=== PATIENT | male | born 1940 | race Caucasian/White ===

== ENCOUNTER 2019-08-01 18:21 | Inpatient (IN) | payer MEDICARE, BC ==
--- OUTSIDE RECORDS SUMMARY | 2019-08-01 18:30 | XMS REPORT | Continuity of Care Document ---
:1940 External Reference #:[id number] Author Name Hernan Garg M.D. Address [address] [place] [address] [address] [place] [address] Care Team Providers Name Role Phone Truman Black MD - Nephrology Care Team Information Outreach Analyst [phone] [place] [facility] - Care Team Information Outreach Analyst [phone] Neurology Peri Reyez - Wall Scraper Care Team Information Outreach Analyst [phone] [facility] - Care Team Information Outreach Analyst [phone] Gastroenterology Problems Active Problems Provider Date Chronic renal failure Hernan Garg M.D. Onset: 10/18/2005 Malaise and fatigue Hernan Garg M.D. Onset: 04/18/2006 Disorder of lipid metabolism Hernan Garg M.D. Onset: 04/18/2006 Anxiety state Hernan Garg M.D. Onset: 04/18/2006 Gastroesophageal reflux disease Hernan Garg M.D. Onset: 04/18/2006 Dysthymia Hernan Garg M.D. Onset: 03/14/2007 Benign essential hypertension Hernan Garg M.D. Onset: 03/14/2007 Chronic renal failure Hernan Garg M.D. Onset: 03/14/2007 History of polyp of colon Hernan Garg M.D. Onset: 04/08/2008 Gout Hernan Garg M.D. Onset: 04/14/2009 Coronary arteriosclerosis Hernan Garg M.D. Onset: 02/22/2011 Chronic kidney disease stage 3 Hernan Garg M.D. Onset: 07/30/2013 Essential hypertension Hernan Garg M.D. Onset: 08/12/2015 Aneurysm of thoracic aorta Hernan Garg M.D. Onset: 05/04/2018 Social History Type Date Description Comments Sex Unknown Tobacco Use Reviewed: 08/19/14 Never Smoked Cigarettes Smoking Status Reviewed: 08/19/14 Never Smoked Cigarettes ETOH Use Drinks Alcohol Occasionally Recreational Drug Use Denies Drug Use Allergies, Adverse Reactions, Alerts Description No Known Drug Allergies Medications Active Medications SIG Qnty Indications Ordering Date Provider Pantoprazole Sodium 1 by mouth every 90tabs K21.9 Hernan Garg, 2017 morning; for acid M.D. 40mg Tablets DR reflux Sertraline HCL 1.5 tablets by 135tabs F34.1 Hernan Garg, 05/03/2018 100mg mouth every day M.D. Tablets for mood Metoprolol Succinate take 1 tablet by 90tabs I10 Hernan Garg, 2016 ER mouth every M.D. 25mg Tablets ER 24HR morning for heart and blood pressure I25.10 Fiber Therapy [facility]- 1 po Unknown 08/09/2016 Tablets daily Atorvastatin Calcium Take 1 Tablet by 90tabs E71.30 Hernan Garg, 09/22 40mg mouth every day for M.D. Tablets high cholesterol Nitroglycerin 1 po prn for chest 25tabs I25.10 Hernan Garg, 04/02/2012 0.4mg Tablets pain, may repeat M.D. Sub after 5min to a max of 3 doses; call 911 if pain persists Allopurinol take 2 tablets by 180tabs M10.9 Hernan Garg, 10/10/2008 100mg Tablets mouth once daily to M.D. prevent gout Asa (Baby) 1 PO qd tim 12/15/2003 81mg Multivitamins tim 12/15/2003 Caplets Medications Administered in Office Medication SIG Qnty Indications Ordering Provider Date injection, kenalog, 10 mg Hernan Garg M.D. 02/20/2015 Injection Immunizations CPT Code Status Date Vaccine Lot # [id number] Given 07/09/2018 Influenza Vaccine Split Virus Preservative [place] Use 33950 Given 03/22/2018 Shingrix Zoster (Shingles) Vaccine (HZV) Recomb,Subnit,Adjuvanted 14294 Given 01/16/2018 Shingrix Zoster (Shingles) Vaccine (HZV) Recomb,Subnit,Adjuvanted 61658 Given 01/16/2018 Shingrix Zoster (Shingles) Vaccine (HZV) Recomb,Subnit,Adjuvanted 47173 Given 06/18/2017 Influenza Virus Vaccine, Quadrivalent, Split, Preservative Free 15805 Given 07/24/2016 Influenza Vaccine Split Virus Preservative Free Im Use 43497 Given 07/29/2015 Zostavax 93397 Given 07/29/2015 Influenza Vaccine Split Virus Preservative Free Im Use 27379 Given 04/13/2015 Prevnar 13 [id number] 41404 Given 02/17/2015 Adacel or Boostrix, TDaP [id number] 24730 Given 08/19/2014 Influenza Vaccine Split Virus Preservative Free Im [id number] Use 83006 Given 07/30/2013 Flu, Split Virus 3Yrs [id number] 66611 Given 07/31/2012 Flu, Split Virus 3Yrs [id number] 49400 Given 08/08/2011 Flu, Split Virus 3Yrs [id number] 74857 Given 07/02/2010 Flu, Split Virus 3Yrs [id number] 75540 Given 07/28/2009 Flu, Split Virus 3Yrs [id number] 16670 Given 08/12/2008 Flu, Split Virus 3Yrs [id number] 88512 Given 08/30/2007 Flu, Split Virus 3Yrs [id number] 95263 Given 08/21/2006 Flu, Split Virus 3Yrs [id number] 42893 Given 01/03/2006 Pneumococcal Immunization [id number] 71478 Given 01/03/2006 Td Immunization Td-145 25613 Given 08/20/2005 Flu, Split Virus 3Yrs 74419 Given 08/20/2005 Flu, Split Virus 3Yrs 93955 Refused 06/29/2007 Zostavax Vital Signs Date Vital Result Comment 06/14/2019 9:03am BP Systolic 138 mmHg BP Diastolic 84 mmHg Weight 217.50 lb w/sneakers 01/28/2019 8:52am BP Systolic 118 mmHg BP Diastolic 70 mmHg Height 67.5 inches 5'7.50" Weight 224.00 lb BMI (Body Mass Index) 34.6 kg/m2 Results Test Date Facility Test Result H/L Range Note Creatinine 04/12/2019 [facility] Urine Collection 24 hr Clearance [phone] Time Urine Total Volume 1300 mL Creatinine, Serum 2.58 mg/dL High 0.51-0.95 Urine Creatinine Concentration 97.92 mg/dL Creatinine Clearance 34 mL/min Low 97-137 Comp Metabolic Panel 04/12/2019 [facility] Sodium 144 mmol/L Normal 135-145 [phone] Co2 Carbon Dioxide 23 mmol/L Normal 22-32 Glucose 107 mg/dL High 70-100 Blood Urea Nitrogen 32 mg/dL High 6-24 Creatinine 2.59 mg/dL High 0.67-1.17 One Over Creatinine 0.38 BUN/Creatinine Ratio 12.4 Normal 8-20 Calcium 9.8 mg/dL Normal 8.6-10.3 Total Protein 6.3 g/dL Low 6.4-8.9 Albumin 4.0 g/dL Normal 3.2-5.2 Globulin 2.3 g/dL Normal 2-4 Albumin/Globulin Ratio 1.7 Normal 1-3 Total Bilirubin 0.60 mg/dL Normal 0.2-1.0 Alkaline Phosphatase 72 U/L Normal 34-104 Alt 20 U/L Normal 7-52 Ast 25 U/L Normal 13-39 Egfr Non- 24.0 >60 Egfr 29.0 >60 1 Potassium 5.3 mmol/L High 3.5-5.0 Chloride 114 mmol/L High 101-111 Anion Gap 7 mmol/L Normal 2-11 Lipid Profile (Trig/Chol/HDL) 04/12/2019 [facility] Triglycerides 173 mg/dL 2 [phone] Cholesterol 106 mg/dL 3 HDL Cholesterol 27.5 mg/dL 4 LDL Cholesterol 44 mg/dL 5 Liver Function 04/12/2019 [facility] Direct 0.10 mg/dL Normal 0.03- 0.18 Panel [phone] Bilirubin Indirect Bilirubin 0.5 mg/dL Normal 0.3-1.0 Laboratory test 04/12/2019 [facility] Uric Acid 5.2 mg/dL Normal 4.4- 7.6 finding [phone] Phosphorus 3.6 mg/dL Normal 2.5-5.0 Magnesium 2.0 mg/dL Normal 1.9-2.7 CBC Auto Diff 04/12/2019 [facility] White Blood 6.1 10^3/uL Normal 3.5-10.8 [phone] Count Red Blood Count 4.19 10^6/uL Normal 4.18-5.48 Hemoglobin 14.1 g/dL Normal 14.0-18.0 Hematocrit 43 % Normal 42-52 Mean Corpuscular Volume 103 fL High 80-94 Mean Corpuscular Hemoglobin 34 pg High 27-31 Mean Corpuscular HGB Conc 33 g/dL Normal 31-36 Red Cell Distribution Width 15 % Normal 10-15 Platelet Count 134 10^3/uL Low 150-450 Mean Platelet Volume 9.9 fL Normal 7.4-10.4 Abs Neutrophils 4.3 10^3/uL Normal 1.5-7.7 Abs Lymphocytes 1.1 10^3/uL Normal 1.0-4.8 Abs Monocytes 0.4 10^3/uL Normal 0-0.8 Abs Eosinophils 0.2 10^3/uL Normal 0-0.6 Abs Basophils 0.0 10^3/uL Normal 0-0.2 Abs Nucleated RBC 0.0 10^3/uL Granulocyte % 70.7 % Lymphocyte % 18.6 % Monocyte % 6.3 % Eosinophil % 4.0 % Basophil % 0.4 % Nucleated Red Blood Cells % 0.1 Total Protein 24HR Urine 04/12/2019 [facility] Urine Collection Time 24 hr [phone] Urine Total Volume 1300 mL Urine TP Concentration 21 mg/dL Urine Total Protein/24HR 273 mg/24Hr High 0-165 1 Because ethnic data is not always readily available, this report includes an eGFR for both -Americans and non- Americans. The National Kidney Disease Education Program (NKDEP) does not endorse the use of the MDRD equation for patients that are not between the ages of 18 and 70, are , have extremes of body size, muscle mass, or nutritional status, or are non- or non-. According to the National Kidney Foundation, irrespective of diagnosis, the stage of the disease is based on the level of kidney function: Stage Description GFR(mL/min/1.73 m(2)) 1 Kidney damage with normal or decreased GFR 90 2 Kidney damage with mild decrease in GFR 60-89 3 Moderate decrease in GFR 30-59 4 Severe decrease in GFR 15-29 5 Kidney failure <15 (or dialysis) 2 Desirable: <150 Borderline High: 150-199 High: 200-499 Very High: >500 3 Desirable: <200 Borderline High: 200-239 High: >239 4 Low: <40 Desirable: 40-60 High: >60 5 Desirable: <100 Near Optimal: 100-129 Borderline High: 130-159 High: 160-189 Very High: >189 Procedures Date Code Description Status 09/22/2017 16136728 Colonoscopy Completed Medical Devices Description No Information Available Encounters Type Date Location Provider Dx Diagnosis Office Visit 01/28/2019 8:30a Main Office Hernan Garg M.D. R29.6 Repeated falls M53.3 Sacrococcygeal disorders, not elsewhere classified N18.3 Chronic kidney disease, stage 3 (moderate) I10 Essential (primary) hypertension M62.81 Muscle weakness (generalized) Assessments Date Code Description Provider 06/14/2019 N18.3 Chronic kidney disease, stage 3 (moderate) Hernan Garg M.D. 06/14/2019 I10 Essential (primary) hypertension Hernan Garg M.D. 06/14/2019 F34.1 Dysthymic disorder Hernan Garg M.D. 06/14/2019 R29.6 Repeated Hernan Ro M.D. 06/14/2019 K21.9 Gastro-esophageal reflux disease without Hernan Garg M.D. esophagitis 06/14/2019 Z23 Encounter for immunization Hernan Garg M.D. 01/28/2019 R29.6 Repeated falls Hernan Garg M.D. 01/28/2019 M53.3 Sacrococcygeal disorders, not elsewhere Hernan Garg M.D. classified 01/28/2019 N18.3 Chronic kidney disease, stage 3 (moderate) Hernan Garg M.D. 01/28/2019 I10 Essential (primary) hypertension Hernan Garg M.D. 01/28/2019 M62.81 Muscle weakness (generalized) Hernan Garg M.D. Plan of Treatment 06/14/2019 - Hernan Garg M.D.N18.3 Chronic kidney disease, stage 3 ( moderate)I10 Essential (primary) hypertensionFollow up:RTO 4-6 months recheck chronic youwayniD17.1 Dysthymic disorderComments:Not doing so well. In discussing medication options (noting prior intolerance to bupropion and failing on citalopram), it was learned that he has only been taking 100mg/day of sertraline and not the 150mg as Rx'd. He will inc the dose to 150mg, reassess at next ov.Follow up:Increase your sertraline back to 150mg/dayR29.6 Repeated fallsComments:Encouraged him to take ageless agility class at & ollow up:You should STRONGLY CONSIDER taking ageless agility class at [facility] & amp; JffwztV79.9 Gastro-esophageal reflux disease without tivcnmnpjzqY09 Encounter for immunizationComments:Encouraged flu vaccine wc was accepted. VIS provided. Functional Status Description No Information Available Mental Status Description No Information Available Referrals Description No Information Available
--- OUTSIDE RECORDS SUMMARY | 2019-08-01 18:30 | XMS REPORT | Continuity of Care Document ---
:1940 External Reference #:[id number] Author Name Toney Conte M.D., [facility], [facility] (transmitted by agent of provider Tavia Samano) Address [facility] [place] [address] Care Team Providers Name Role Phone Hernan Garg MD - Internal Care Team Information Lobster Man [phone] Medicine Problems Active Problems Provider Date Chronic ischemic heart disease Toney Conte M.D., [facility], [facility] Onset: 11/2013 Thoracic aortic ectasia Toney Conte M.D., [facility], [facility] Onset: 05/16/2016 Social History Type Date Description Comments Sex Unknown ETOH Use Denies alcohol use Tobacco Use Start: Unknown Patient has never smoked Recreational Drug Use Denies Drug Use Smoking Status Reviewed: 06/21/19 Patient has never smoked Exercise Type/Frequency Does not exercise Allergies, Adverse Reactions, Alerts Description No Known Drug Allergies Medications Active Medications SIG Qnty Indications Ordering Provider Date Allopurinol 2 tablet po 90tabs Unknown 100mg Tablets daily for gout Metoprolol Succinate 1 by mouth every 90tabs Unknown ER day 25mg Tablets ER 24HR Amlodipine Besylate 1 by mouth every 90tabs Unknown 5mg day Tablets Nitrostat one sl q5min up 25tabs Unknown 0.4mg Tablets to 3 doses as Sub needed Aspirin 1 by mouth every Unknown 81mg Tablets day PM Fibercon 2 tablet po 60tabs Unknown 625mg Tablets daily Centrum Silver 1 by mouth every Unknown Tablets day Pantoprazole Sodium 1 by mouth every Unknown 40mg day Tablets DR Sertraline HCL 1 and 1/2 tab Unknown 100mg by mouth every Tablets day Atorvastatin Calcium 1 by mouth every Unknown 40mg day Tablets Famotidine 1 tab by mouth Unknown 40mg Tablets daily. Medications Administered in Office Medication SIG Qnty Indications Ordering Provider Date Inj, Regadenoson, 0.1 MG Toney Conte M.D., 05/12/2015 Injection CHAITANYA BUCHANAN Technetium TC 99M Toney Conte M.D., 05/12/2015 Tetrofosmin, Per Unit Dose CHAITANYA BUCHANAN Up To 40 Millicuries Injection Immunizations Description No Information Available Vital Signs Date Vital Result Comment 06/21/2019 11:16am Weight 216.00 lb Heart Rate 80 /min irregular BP Systolic Sitting 102 mmHg LA Regular Cuff BP Diastolic Sitting 74 mmHg LA Regular Cuff BP Systolic Standing 110 mmHg LA Regular Cuff BP Diastolic Standing 78 mmHg LA Regular Cuff Respiratory Rate 20 /min Pain Level 0 O2 % BldC Oximetry 98 % 05/11/2018 9:38am Weight 221.00 lb Heart Rate 80 /min irregular BP Systolic Sitting 96 mmHg LA Large Cuff BP Diastolic Sitting 68 mmHg LA Large Cuff BP Systolic Standing 90 mmHg LA Large Cuff BP Diastolic Standing 64 mmHg LA Large Cuff Respiratory Rate 16 /min Pain Level 0 O2 % BldC Oximetry 95 % Results Description No Information Available Procedures Date Code Description Status 06/21/2019 32411 EKG Tracing & Interpretation Completed Medical Devices Description No Information Available Encounters Type Date Location Provider Dx Diagnosis Office Visit 06/21/2019 Cardiology Toney Landon I25.9 Chronic ischemic 11:15a [facility] [place] Conte, heart disease, [place] CHANEL, CHAITANYA unspecified Assessments Date Code Description Provider 06/21/2019 I25.9 Chronic ischemic heart disease, Toney Conte M.D., CHANEL, unspecified CHAITANYA Plan of Treatment 06/21/2019 - Toney Conte M.D., CHANEL, QDSGEK96.9 Chronic ischemic heart disease, unspecifiedNew Orders:Stress Test, Pharmacologic Nuclear (Lexiscan), Ordered: 06/21/19Follow up:after NLM in one year Functional Status Description No Information Available Mental Status Description No Information Available Referrals Description No Information Available
--- OUTSIDE RECORDS SUMMARY | 2019-08-01 18:30 | XMS REPORT | Continuity of Care Document ---
:1940 External Reference #:[id number] Author Name Desi Rogers Care Team Providers Name Role Phone Truman Black MD - Nephrology Care Team Information Wheel Tuner [place] [facility] - Care Team Information Wheel Tuner Neurology Peri Reyez - Paper Tube Grader Care Team Information Wheel Tuner [phone] [facility] - Care Team Information Wheel Tuner [phone] Gastroenterology Problems Active Problems Provider Date Chronic [...] morning; for acid M.D. 40mg Tablets DR jessie Sertraline HCL 1.5 tablets by 135tabs F34.1 [...] CPT Code Status Date Vaccine Lot # [id number] Given 06/14/2019 Influenza Vaccine, Inactivated, Subunit, [id number] Adjuvanted, For Intrmusc 47030 Given 07/09/2018 Influenza Vaccine Split Virus Preservative Free Im Use 02656 Given 03/22/2018 Shingrix Zoster (Shingles) Vaccine (HZV) Recomb,Subnit,Adjuvanted 02030 Given 01/16/2018 Shingrix Zoster (Shingles) Vaccine (HZV) Recomb,Subnit,Adjuvanted 30050 Given 01/16/2018 Shingrix Zoster (Shingles) Vaccine (HZV) Recomb,Subnit,Adjuvanted 42785 Given 06/18/2017 Influenza Virus Vaccine, Quadrivalent, Split, Preservative Free 47942 Given 07/24/2016 Influenza Vaccine Split Virus Preservative Free Im Use 51151 Given 07/29/2015 Zostavax 51962 Given 07/29/2015 Influenza Vaccine Split Virus Preservative Free Im Use 98654 Given 04/13/2015 Prevnar 13 [id number] 10758 Given 02/17/2015 Adacel or Boostrix, TDaP [id number] 51921 Given 08/19/2014 Influenza Vaccine Split Virus Preservative Free Im [id number] Use 14272 Given 07/30/2013 Flu, Split Virus 3Yrs [id number] 80081 Given 07/31/2012 Flu, Split Virus 3Yrs [id number] 38961 Given 08/08/2011 Flu, Split Virus 3Yrs [id number] 01291 Given 07/02/2010 Flu, Split Virus 3Yrs [id number] 11109 Given 07/28/2009 Flu, Split Virus 3Yrs [id number] 52159 Given 08/12/2008 Flu, Split Virus 3Yrs [id number] 96900 Given 08/30/2007 Flu, Split Virus 3Yrs [id number] 30912 Given 08/21/2006 Flu, Split Virus 3Yrs [id number] 32140 Given 01/03/2006 Pneumococcal Immunization [id number] 43752 Given 01/03/2006 Td Immunization Td-145 72729 Given 08/20/2005 Flu, Split Virus 3Yrs 55780 Given 08/20/2005 Flu, Split Virus 3Yrs 94522 Refused 06/29/2007 Zostavax Vital Signs Date Vital Result Comment 07/31/2019 1:54pm BP Systolic 126 mmHg BP Diastolic 82 mmHg O2 % BldC Oximetry 9398 % at rest and w/ ambulation Weight 225.00 lb 06/14/2019 9:03am BP Systolic 138 mmHg BP Diastolic 84 mmHg Weight 217.50 lb w/sneakers Results Test Date Facility Test Result H/L Range Note Laboratory test 07/31/2019 [facility] Troponin-I <pending> finding [phone] (TnI) B-Type Natriuretic Peptide BNP <pending> Creatinine Clearance 04/12/2019 [facility] Urine Collection Time 24 hr [phone] Urine Total Volume 1300 mL Creatinine, Serum 2.58 mg/dL High 0.51-0.95 Urine Creatinine Concentration 97.92 mg/dL Creatinine Clearance 34 mL/min Low 97-137 Comp Metabolic Panel 04/12/2019 [facility] Sodium 144 mmol/L Normal 135-145 [phone] Co2 Carbon Dioxide 23 mmol/L Normal 22-32 [...] mmol/L Normal 2-11 Lipid Profile (Trig/Chol/HDL) 04/12/2019 [facility] Triglycerides 173 mg/dL 2 [phone] Cholesterol 106 mg/dL 3 HDL Cholesterol 27.5 mg/dL 4 LDL Cholesterol 44 mg/dL 5 Liver Function 04/12/2019 [facility] Direct 0.10 mg/dL Normal 0.03- 0.18 Panel [phone] Bilirubin Indirect Bilirubin 0.5 mg/dL Normal 0.3-1.0 Laboratory test 04/12/2019 [facility] Uric Acid 5.2 mg/dL Normal 4.4- 7.6 finding [phone] Phosphorus 3.6 mg/dL Normal 2.5-5.0 Magnesium 2.0 mg/dL Normal 1.9-2.7 CBC Auto Diff 04/12/2019 [facility] White Blood 6.1 10^3/uL Normal 3.5-10.8 [phone] Count Red Blood Count 4.19 10^6/uL Normal [...] % 0.1 Total Protein 24HR Urine 04/12/2019 [facility] Urine Collection Time 24 hr [phone] Urine Total Volume 1300 mL Urine TP [...] High: >189 Procedures Date Code Description Status 07/31/2019 78338 Oximetry, Multiple Determinations (Eg, During Exercise) Completed 07/31/2019 74469 Electrocardiogram Complete Completed 06/14/2019 53702 Brief Emotional/Behav Assessment W/ Scoring Doc Per Completed Standard Inst 09/22/2017 61723934 Colonoscopy Completed Medical Devices Description No Information Available Encounters Type Date Location Provider Dx Diagnosis Office Visit 07/31/2019 1:45p Main Office Hernan Garg M.D. R30.0 Dysuria R07.9 Chest pain, unspecified R06.00 Dyspnea, unspecified Office Visit 06/14/2019 8:55a Main Office Hernan Garg N18.3 Chronic kidney M.D. disease, stage 3 (moderate) I10 Essential (primary) hypertension F34.1 Dysthymic disorder R29.6 Repeated falls K21.9 Gastro-esophageal reflux disease without esophagitis Z23 Encounter for immunization Z13.31 Encounter for screening for depression Assessments Date Code Description Provider 07/31/2019 R30.0 Dysuria Hernan Garg M.D. 07/31/2019 R07.9 Chest pain, unspecified Hernan Garg M.D. 07/31/2019 R06.00 Dyspnea, unspecified Hernan Garg M.D. 06/14/2019 N18.3 Chronic kidney disease, stage 3 (moderate) Hernan Garg M.D. 06/14/2019 I10 Essential (primary) hypertension Hernan Garg M.D. 06/14/2019 F34.1 Dysthymic disorder Hernan Garg M.D. 06/14/2019 R29.6 Repeated falls Hernan Garg M.D. 06/14/2019 K21.9 Gastro-esophageal reflux disease without Hernan Garg M.D. esophagitis 06/14/2019 Z23 Encounter for immunization Hernan Garg M.D. 06/14/2019 Z13.31 Encounter for screening for depression Hernan Garg M.D. Plan of Treatment Future Appointment(s):09/23/2019 1:15 pm - Hernan Garg M.D. at Main Bzmjcw4407/31/2019 - Hernan Garg M.D.R30.0 TdzimaiS45.9 Chest pain, gcrksqqvworV48.00 Dyspnea, unspecified Functional Status Description No Information Available Mental Status Description No Information Available Referrals Description No Information Available
--- OUTSIDE RECORDS SUMMARY | 2019-08-01 18:30 | XMS REPORT | Continuity of Care Document ---
:1940 External Reference #:[id number] Author Name Hernan Garg M.D. Address [address] [place] [address] [address] [place] [address] Care Team Providers Name Role Phone Truman Black MD - Nephrology Care Team Information Wafer Cleaner [facility] - Care Team Information Wafer Cleaner Neurology Peri Reyez - Casino Dealer Care Team Information Wafer Cleaner [phone] [facility] - Care Team Information Wafer Cleaner [phone] Gastroenterology Problems Active Problems Provider Date Chronic renal failure Hernan Garg M.D. Onset: 10/18/2005 Malaise and fatigue Hernan Garg M.D. Onset: 04/18/2006 Disorder of lipid metabolism Hernan Garg M.D. Onset: 04/18/2006 Anxiety state Hernan Garg M.D. Onset: 04/18/2006 Gastroesophageal reflux disease Hernna Garg M.D. Onset: 04/18/2006 Dysthymia Hernan Garg [...] Description Comments Sex Unknown Tobacco Use Reviewed: 08/01/19 Never Smoked Cigarettes Smoking Status Reviewed: 08/01/19 Never Smoked Cigarettes ETOH Use Drinks Alcohol [...] CPT Code Status Date Vaccine Lot # [id number] Given 06/14/2019 Influenza Vaccine, Inactivated, Subunit, [id number] [facility], [facility] Given 07/09/2018 Influenza Vaccine Split Virus Preservative Free [place] Use 40640 Given 03/22/2018 Shingrix Zoster (Shingles) Vaccine (HZV) Recomb,Subnit,Adjuvanted 54070 Given 01/16/2018 Shingrix Zoster (Shingles) Vaccine (HZV) Recomb,Subnit,Adjuvanted 85086 Given 01/16/2018 Shingrix Zoster (Shingles) Vaccine (HZV) Recomb,Subnit,Adjuvanted 18453 Given 06/18/2017 Influenza Virus Vaccine, Quadrivalent, Split, Preservative Free 52467 Given 07/24/2016 Influenza Vaccine Split Virus Preservative Free [place] Use 74283 Given 07/29/2015 Zostavax 72289 Given 07/29/2015 Influenza Vaccine Split Virus Preservative Free [place] Use 87565 Given 04/13/2015 Prevnar 13 [id number] 80673 Given 02/17/2015 Adacel or Boostrix, TDaP [id number] 88656 Given 08/19/2014 Influenza Vaccine Split Virus Preservative Free Im [id number] Use 50379 Given 07/30/2013 Flu, Split Virus 3Yrs [id number] 74858 Given 07/31/2012 Flu, Split Virus 3Yrs [id number] 67227 Given 08/08/2011 Flu, Split Virus 3Yrs [id number] 43891 Given 07/02/2010 Flu, Split Virus 3Yrs [id number] 18631 Given 07/28/2009 Flu, Split Virus 3Yrs [id number] 29203 Given 08/12/2008 Flu, Split Virus 3Yrs [id number] 51276 Given 08/30/2007 Flu, Split Virus 3Yrs [id number] 02993 Given 08/21/2006 Flu, Split Virus 3Yrs [id number] 09292 Given 01/03/2006 Pneumococcal Immunization [id number] 54570 Given 01/03/2006 Td Immunization [id number] 35489 Given 08/20/2005 Flu, Split Virus 3Yrs 86050 Given 08/20/2005 Flu, Split Virus 3Yrs [id number] Refused 06/29/2007 Zostavax Vital Signs Date Vital Result Comment 07/31/2019 1:54pm BP Systolic 126 mmHg BP Diastolic 82 mmHg O2 % BldC Oximetry 9398 % at rest and w/ ambulation Weight 225.00 lb 06/14/2019 9:03am BP Systolic 138 mmHg BP Diastolic 84 mmHg Weight 217.50 lb w/sneakers Results Test Date Facility Test Result H/L Range Note Laboratory test 07/31/2019 [facility] Troponin-I <pending> finding [phone] (TnI) B-Type Natriuretic Peptide BNP <pending> Urine Micro Inhouse 07/31/2019 In House Ua WBC <pending> Ua RBC <pending> Ua Casts <pending> Ua Epi <pending> Ua Other <pending> Ua Glucose <pending> Ua Bilirubin <pending> Ua Ketones <pending> Ua Specific [place] <pending> Ua Blood <pending> Ua PH <pending> Ua Protein <pending> Ua Urobilinogen <pending> Ua Nitrite <pending> Ua Leukocytes <pending> Culture Urine Inhouse 07/31/2019 In House Presumptive <pending> Pseudomonas <pending> Staphylococcus <pending> Enterococcus <pending> Yeast <pending> E Coli <pending> Klebsiella <pending> Proteus <pending> Colonies 07/25 Creatinine Clearance 04/12/2019 [facility] Urine Collection Time 24 hr [phone] Urine Total Volume 1300 mL Creatinine, Serum 2.58 mg/dL High 0.51-0.95 Urine Creatinine Concentration 97.92 mg/dL Creatinine Clearance 34 mL/min Low 97-137 Comp Metabolic Panel 04/12/2019 [facility] Sodium 144 mmol/L Normal 135-145 [phone] Co2 Carbon Dioxide 23 mmol/L Normal 22-32 [...] mmol/L Normal 2-11 Lipid Profile (Trig/Chol/HDL) 04/12/2019 [facility] Triglycerides 173 mg/dL 2 [phone] Cholesterol 106 mg/dL 3 HDL Cholesterol 27.5 mg/dL 4 LDL Cholesterol 44 mg/dL 5 Liver Function 04/12/2019 [facility] Direct 0.10 mg/dL Normal 0.03- 0.18 Panel [phone] Bilirubin Indirect Bilirubin 0.5 mg/dL Normal 0.3-1.0 Laboratory test 04/12/2019 [facility] Uric Acid 5.2 mg/dL Normal 4.4- 7.6 finding [phone] Phosphorus 3.6 mg/dL Normal 2.5-5.0 Magnesium 2.0 mg/dL Normal 1.9-2.7 CBC Auto Diff 04/12/2019 [facility] White Blood 6.1 10^3/uL Normal 3.5-10.8 [phone] Count Red Blood Count 4.19 10^6/uL Normal [...] % 0.1 Total Protein 24HR Urine 04/12/2019 [facility] Urine Collection Time 24 hr [phone] Urine Total Volume 1300 mL Urine TP [...] >189 Procedures Date Code Description Status 07/31/2019 83397 Oximetry, Multiple Determinations (Eg, During Exercise) Completed 07/31/2019 97258 Electrocardiogram Complete Completed 06/14/2019 43081 Brief Emotional/Behav Assessment W/ Scoring Doc Per Completed Standard Inst 09/22/2017 63661804 Colonoscopy Completed Medical Devices Description No Information Available Encounters Type Date Location Provider Dx Diagnosis Office Visit 07/31/2019 1:45p Main Office Hernan Garg M.D. R30.0 Dysuria R07.9 Chest pain, unspecified R06.00 Dyspnea, unspecified R41.82 Altered mental status, unspecified Office Visit 06/14/2019 8:55a Main Office Hernan Garg, N18.3 Chronic kidney M.D. disease, stage 3 (moderate) I10 Essential (primary) hypertension F34.1 Dysthymic disorder R29.6 Repeated falls K21.9 Gastro-esophageal reflux disease without esophagitis Z23 Encounter for immunization Z13.31 Encounter for screening for depression Assessments Date Code Description Provider 07/31/2019 R30.0 Dysuria Hernan Garg M.D. 07/31/2019 R07.9 Chest pain, unspecified Hernan Garg M.D. 07/31/2019 R06.00 Dyspnea, unspecified Hernan Garg M.D. 07/31/2019 R41.82 Altered mental status, unspecified Hernan Garg M.D. 06/14/2019 N18.3 Chronic [...] pm - Hernan Garg M.D. at Main [id number]/31/2019 - Hernan Garg M.D.R30.0 OhzqhbmG98.9 Chest pain, ykrtsujtqkhB58.00 Dyspnea, tdwcvrvmlymE26.82 Altered mental status, unspecifiedComments:With the timing as noted above as well as other Sxs, I doubt inc dose sertraline will explain this. Suspicious for early dementia vs infection. Await labs. If they are all unremarkable may consider reducing sertraline to see how he does. Consider RTO for MOCA. Functional Status Description No Information Available Mental Status Description No Information Available Referrals Description No Information Available
--- NOTE | 2019-08-01 18:33 | ED ---
HPI Chest Pain - HPI Summary HPI Summary: Patient is a 79 y/o M w/ Hx of SC and two cardiac stents who presents [facility] with , Maria Elena, with complaints of chest pain and AMS. Maria Elena reports that three days ago, 07/29/19, in the evening, patient appears to be confused and had left-sided chest pain with radiation down to his left abdomen. The following day, 07/30/19, he was confused once more and talking to himself. He awoke during the night and had an episode of emesis. reports that the patient had generalized weakness and was diaphoretic as well. Patient went to PCP office, Dr. Garg, 07/31/19. EKG was completed. Labs were done and sent to [facility] lab today, 08/01/19. Dr. Garg's office managed to reach Maria Elena today, 08/01/19, towards the evening with regards to lab results, including an elevated troponin. Patient was advised to come to ED. In the room, patient denies chest pain at present but notes that he had it yesterday, 07/31/19, and this morning 08/01/19. Some SOB is noted at present. Patient reports that he never smoked tobacco. FMHx of cardiac disease is endorsed. On triage, pain is denied, nothing is noted to aggravate/alleviate Sx. Home medications and allergies are reviewed. Home Medications Aspirin EC TAB* [Ecotrin EC Low Dose 81 MG*] 81 mg PO BEDTIME 08/01/19 [History Confirmed 08/01/19] Metoprolol Succinate XL TAB* [Toprol XL TAB*] 25 mg PO DAILY 08/01/19 [History Confirmed 08/01/19] Multivit-Min/FA/Lycopen/Lutein [Centrum Silver Men Tablet] 1 tab PO DAILY [History Confirmed 08/01/19] Nitroglycerin TAB 0.4 MG* 0.4 mg SL . NEEDED PRN 08/01/19 [History Confirmed 08/01/19] Allergies Allergy/AdvReac Type Severity Reaction Status Date / Time No Known Allergies Allergy Verified 06/09/15 06:34 - History of Current Complaint Chief Complaint: EDChestPainROMI Time Seen by Provider: 08/01/19 18:30 Hx Obtained From: Patient, Family/Medicare Insurance Specialist - Onset/Duration: Started Days Ago - AMS, Still Present - SOB, Resolved - chest pain Timing: Constant, Lasting Days Initial Severity: Mild Current Severity: None Pain Intensity: 0 Pain Scale Used: 0-10 Numeric Chest Pain Location: Left Anterior - under left ribs Chest Pain Radiates: Yes Chest Pain Radiates To:: Other - left abdomen Character: Other: - "twinge" Aggravating Factor(s): Nothing Alleviating Factor(s): Nothing Associated Signs and Symptoms: Positive: Chest Pain, Shortness of Breath, Diaphoresis, Vomiting, Other: - AMS, generalized weakness - Additional Pertinent History Primary Care Physician: [id number] - Allergy/Home Medications Allergies/Adverse Reactions: Allergies Allergy/AdvReac Type Severity Reaction Status Date / Time No Known Allergies Allergy Verified 06/09/15 06:34 Home Medications: Home Medications Aspirin EC TAB* [Ecotrin EC Low Dose 81 MG*] 81 mg PO BEDTIME 08/01/19 [History Confirmed 08/01/19] Multivit-Min/FA/Lycopen/Lutein [Centrum Silver Men Tablet] 1 tab PO DAILY [History Confirmed 08/01/19] Nitroglycerin TAB 0.4 MG* 0.4 mg SL . NEEDED PRN 08/01/19 [History Confirmed 08/01/19] PMH/Surg Hx/FS Hx/Imm Hx Previously Healthy: No Endocrine/Hematology History: Denies: Hx Diabetes, Hx Thyroid Disease Cardiovascular History: Reports: Hx Coronary Artery Disease - 2 STENTS IN THE RIGHT CORONARY CARTERY-2010, Hx Hypercholesterolemia, Hx Hypertension, Hx Rheumatic Fever - A CHILD, Other Cardiovascular Problems/Disorders - Aorta slightly enlarged,Dr. 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 Denies: Hx Kidney Stones Musculoskeletal History: Reports: Hx Arthritis - RIGHT KNEE, Hx Gout Sensory History: Reports: Hx Cataracts, Hx Contacts or Glasses - READING, Hx Hearing Aid - BILATERAL Opthamlomology History: Reports: Hx Cataracts, Hx Contacts or Glasses - READING Neurological History: Denies: Hx Dementia, Hx Migraine, Hx Seizures, Hx Transient Ischemic Attacks (TIA) Psychiatric History: Reports: Hx Depression - ON MEDICATION FOR Denies: Hx Anxiety, Hx Schizophrenia, Hx Bipolar Disorder - Surgical History Surgery Procedure, Year, and Place: 2010- STENTS PLACED- [facility]. RUPTURED APPENDIX A CHILD. BILATERAL CATARACTS- [place]. R KNEE ARTHROPLASTY Hx Anesthesia Reactions: No Infectious Disease History: No Infectious Disease History: Denies: Hx Clostridium Difficile, Hx Hepatitis, Hx Human Immunodeficiency Virus (HIV), Hx Shingles, Hx Tuberculosis, Hx Known/Suspected VRE, Hx Known/ Suspected VRSA, History Other Infectious Disease, Traveled Outside the in Last 30 Days - Family History Known Family History: Positive: Cardiac Disease - Social History Lives: With Family Alcohol Use: None Substance Use Type: Reports: None Smoking Status (MU): Never Smoked Tobacco Review of Systems Positive: Fatigue, Skin Diaphoresis Positive: Chest Pain - since resolved Positive: Shortness Of Breath Positive: Vomiting Positive: no symptoms reported Skin: Negative Neurological: Other - positive - confusion 07/29/19 and 07/30/19 per , now resolved Psychological: Normal All Other Systems Reviewed And Are Negative: Yes Physical Exam - Summary Physical Exam Summary: Appearance: Well-appearing, no pain distress, obese Skin: Warm, color reflects adequate perfusion, dry Head: Normal Head/Face inspection, atraumatic Eyes: Conjunctiva clear, pupils midpoint, EOMI, no nystagmus ENT: Normal inspection Neck: Supple, no nodes, no JVD Respiratory: Lungs clear, normal breath sounds, no respiratory distress Cardio: RRR, No murmur, pulses normal, brisk capillary refill Abdomen: Soft, nontender; there is an umbilical hernia with red skin that is easily reducible. Bowel sounds are present, no guarding, no rebound, no masses, no distention. Bowel sounds: Present Musculoskeletal: Trace BLE edema. Strength Intact/ROM intact, no calf tenderness. Psychological: Normal, altered mental status is not apparent Neuro: Alert, oriented to self, location, date, answers questions without difficulty with answers that are coherent and cogent, moves all extremities, sensation intact to light touch, muscle tone normal, no focal deficit Triage Information Reviewed: Yes Vital Signs On Initial Exam: Initial Vitals Temp Pulse Resp BP Pulse Ox 98.5 F 60 16 136/65 100 08/01/19 18:26 08/01/19 18:26 08/01/19 18:26 08/01/19 18:26 08/01/19 18:26 Vital Signs Reviewed: Yes Procedures - Sedation Patient Received Moderate/Deep Sedation with Procedure: No Diagnostics - Vital Signs Vital Signs Temp Pulse Resp BP Pulse Ox 08/01/19 18:26 98.5 F 60 16 136/65 100 - Laboratory Result Diagrams: 08/02/19 06:59 08/05/19 04:32 Lab Statement: Any lab studies that have been ordered have been reviewed, and results considered in the medical decision making process. - Radiology CXR Radiology Interpretation Completed By: ED Physician Summary of Radiographic Findings: Pleural effusion of left base, pending official report. - EKG 1825 Cardiac Rate: Other Rate - afib with rate of 62 BPM EKG Rhythm: Atrial Fibrillation ST Segment: Non-Specific Ectopy: PVCs EKG Comparison: Other - c/w 02/03/11 pt is now in afib. RBBB is not new. Summary of EKG Findings: EKG showed afib with rate of 62 BPM, RBBB, nml QTc, 1 PVC noted, compared to 02/03/11 pt is now in afib. This EKG was reviewed and interpreted by Dr. Mijares. Re-Evaluation - Re-Evaluation First Eval Re-Evaluation Time: 20:50 Change: Unchanged Comment: Pt denies chest pain. Is oriented and appropriate. and pt advised of admission and they agree. Chest Pain Course/Dx - Course Course Of Treatment: Patient is a 79 y/o M w/ Hx of SC and two cardiac stents who presents to [facility] with , Maria Elena, with complaints of chest pain and AMS. Maria Elena reports that three days ago, 07/29/19, in the evening, patient appears to be confused and had left-sided chest pain with radiation down to his left abdomen. The following day, 07/30/19, he was confused once more and talking to himself. He awoke during the night and had an episode of emesis. reports that the patient had generalized weakness and was diaphoretic as well. Patient went to PCP office, Dr. Garg, 07/31/19. EKG was completed. Labs were done and sent to [facility] lab today, 08/01/19. Dr. Garg's office managed to reach Maria Elena today, 08/01/19, towards the evening with regards to lab results, which included an elevated troponin. Patient was advised to come to ED. In the room, patient denies chest pain at present but notes that he had it yesterday, , and this morning 08/01/19. Some SOB is noted at present. On physical exam, patient is noted to have trace BLE edema, he has an umbilical hernia tat is easily reducible. Pleural effusion of left base noted on CXR, unofficial reading. EKG showed afib with rate of 62 BPM, RBBB, nml QTc, 1 PVC noted, compared to 02/03/11 pt is now in afib. Bloodwork was obtained. Trop was 0.11 and BNP 511. Other abnormal values include RBC 3.63, Hgb 12.5, Hct 37, MCV 102, MCH 35, plt count 103, absolute neuts 7.9, absolute lymphs 0.9, absolute monos 1 , INR 1.22, carbon dioxide 20, BUN 31, creatinine 2.36, glucose 105, total protein 6.3. During ED course, patient received 324 ASA PO. 1948 - Patient's case was discussed with Dr. Reynaga. Dr. Reynaga accepts for admission. - Chest Pain Differential Diagnosis/HQI/PQRI: Acute SC, ACS, CHF, Lower Respiratory Infection - Diagnoses Provider Diagnoses: Chest pain, Elevated troponin, CHF (congestive heart failure), Thrombocytopenia , CKD (chronic kidney disease) stage 4, GFR 15-29 ml/min, Altered mental status - Provider Notifications Discussed Care Of Patient With: Selvin Reynaga Time Discussed With Above Provider: 19:49 Instructed by Provider To: Other - 1948 - Patient's case was discussed with Dr. Reynaga. Dr. Reynaga accepts for admission. Discharge ED - Sign-Out/Discharge Documenting (check all that apply): Patient Departure - admit All imaging exams completed and their final reports reviewed: No - Discharge Plan Condition: Stable Disposition: ADMITTED TO [facility] - Billing Disposition and Condition Condition: STABLE Disposition: Admitted to [facility] - Attestation Statements Document Initiated by Scribe: Yes Documenting Scribe: KEELY PATEL Provider For Whom Scribe is Documenting (Include Credential): CRISTIN MIJRAES MD Scribe Attestation: IKEELY, scribed for CRISTIN MIJARES MD on 08/20/19 at 1140. Scribe Documentation Reviewed: Yes Provider Attestation: The documentation as recorded by the KEELY cm accurately reflects the service I personally performed and the decisions made by me, CRISTIN MIJARES MD Status of Scribe Document: Viewed
[2019-08-01] MEDS ORDERED: Aspirin 81 mg CHEW TAB* 81 MG TAB.CHEW PO ONE (18:52)
[2019-08-01 19:07] LABS: ABS Basophils 0.1 10^3/ul (0-0.2); ABS Eosinophils 0.1 10^3/ul (0-0.6); ABS Lymphocytes 0.9 10^3/ul (1.0-4.8); ABS Neutrophils 7.9 10^3/ul (1.5-7.7); Eosinophil % 1.3 %; Hematocrit 37 % (42-52); Hemoglobin 12.5 g/dL (14.0-18.0); Lymphocyte % 9.4 %; Mean Corpuscular HGB Conc 34 g/dL (31-36); Mean Corpuscular Hemoglobin 35 pg (27-31); Mean Corpuscular Volume 102 fL (80-94); Mean Platelet Volume 10.2 fL (7.4-10.4); Nucleated Red Blood Cells % 0.1; Platelet Count 103 10^3/uL (150-450); Red Blood Count 3.63 10^6 /uL (4.18-5.48); Red Cell Distribution Width 14 % (10-15)
[2019-08-01 19:26] LABS: ALT 34 U/L (7-52); AST 36 U/L (13-39); Albumin 3.6 g/dL (3.2-5.2); Albumin/Globulin Ratio 1.3 (1-3); Alkaline Phosphatase 86 U/L (34-104); Anion Gap 9 mmol/L (2-11); BUN/Creatinine Ratio 13.1 (8-20); Blood Urea Nitrogen 31 mg/dL (6-24); CO2 Carbon Dioxide 20 mmol/L (22-32); Chloride 111 mmol/L (101-111); Creatine Kinase 55 U/L (10-223); EGFR African American 32.3 (>60); EGFR Non-African American 26.7 (>60); Globulin 2.7 g/dL (2-4); Glucose 105 mg/dL (70-100); Magnesium 1.9 mg/dL (1.9-2.7); Sodium 140 mmol/L (135-145); Total Protein 6.3 g/dL (6.4-8.9)
[2019-08-01 19:28] LABS: CKMB ng/mL 3.3 ng/mL (0.6-6.3); Troponin I 0.11 ng/mL (<0.04)
[2019-08-01 19:52] LABS: Activated Partial Thrombo Time 30.9 seconds (26.0-38.0); INR 1.22 (0.82-1.09)
[2019-08-01 22:20] LABS: Troponin I 0.12 ng/mL (<0.04)
[2019-08-02 00:41] LABS: Troponin I 0.12 ng/mL (<0.04)
[2019-08-02] MEDS ORDERED: Nitroglycerin TAB 0.4 MG* 0.4 MG TAB SL PRN (00:46)
--- NOTE | 2019-08-02 02:45 | HP ---
CC: Dr. Hernan Garg; Dr. Conte, Cardiology * HISTORY AND PHYSICAL: DATE OF ADMISSION: 08/02/19 PRIMARY CARE PHYSICIAN: Dr. Hernan Garg. CHIEF COMPLAINT: Chest pain and altered mental status. HISTORY OF PRESENT ILLNESS: This is an 79-year-old male with past medical history of hypertension, dyslipidemia, gout, gastroesophageal reflux disease, coronary artery disease, status post 2 stents in 2010, history of osteoarthritis with right knee arthroplasty, brought in by his due to progressive confusion and unsteady gait and chest pain. According to the , the patient was working on decorating his garden and was moving some stones and he felt chest pain, non radiating, accompanied with some shortness of breath, being sweaty, and lost his balance and felt lightheaded. Since Monday, he has been having intermittent times where he would get confused at night, get up and talk to himself or unsure of where he was. This happened on Monday night , Monday, and even Monday, and on Monday night, he also had difficulty getting his pajamas up along with 1 episode of vomiting and was having difficulty getting himself to lay in bed, the had to help him quite a bit. His already messaged Dr. Garg on the patient portal, who recommended her to bring the patient into the ER for further evaluation. Upon arrival, the ER physician, they stated, did the workup for the chest pain. The patient was completely back to his baseline, he was alert and oriented to date and seems to understand that this was July of 2019, the end of the month, and was able to recollect that he was having some balance issues. stated that he was also having falls for the last week because he would lose balance, but he never injured his head. There was no obvious numbness, weakness, or tingling, just a balance that was off. PAST MEDICAL HISTORY: As mentioned, he has a history of coronary artery disease , status post 2 stents to what calls a maker, likely left anterior descending; history of dyslipidemia; hypertension; gout; gastroesophageal reflux disease. According to the , the patient was also told that he had some irregular heart rate and may need a pacemaker when they saw Dr. Conte few months ago. History of chronic kidney disease and documentation of only one kidney functioning properly. Previous GFR was documented at 25 based on labs from April. PAST SURGICAL HISTORY: He has had a ruptured appendix with appendectomy, bilateral cataract removal, right knee arthroplasty, and cardiac stents in 2010 , 2 of them to the maker. HOME MEDICATIONS: The patient is on: 1. Atorvastatin 40 mg daily at bedtime. 2. Aspirin 81 mg daily at bedtime. 3. Zoloft 100 mg daily at bedtime. 4. Nitroglycerin tablet 0.4 mg sublingual as needed for pain. 5. Centrum silver 1 tablet oral daily. 6. Fiber therapy every morning. 7. Pantoprazole 40 mg oral daily. 8. Allopurinol 200 mg every morning. 9. Metoprolol extended release 25 mg oral daily. FAMILY HISTORY: Noncontributory at his age of 79, but mother had a stroke and an SC. SOCIAL HISTORY: He used to work in [employer]. Denies any smoking, alcohol, or drug abuse. Lives with his , Maria Elena Man, and normally ambulates independently. He is full code and his is healthcare proxy. REVIEW OF SYSTEMS: A 14-point review of systems did not reveal any new information other than the ones stated in the HPI. PHYSICAL EXAMINATION GENERAL: The patient is awake, alert, and oriented to time, place, and person. VITAL SIGNS: BP was noted to be 143/74, heart rate 59, respiration rate 21, saturating 95% on room air, temperature documented at 98.5. HEAD AND NECK: Atraumatic, normocephalic. Bilateral pupils were reactive, postsurgical pupils. There was some slight difference in pupillary size with the left side being slightly more dilated compared to the right, but both of them were reactive. With light, the right pupil was reactive to 2 mm with left pupil being about 3 mm. Neck supple. No jugular venous distention. LUNGS: Clear to auscultation bilaterally. No wheezing, rhonchi, or rales. HEART: S1, S2. Regular rate and rhythm. ABDOMEN: Soft, nontender, nondistended. EXTREMITIES: No cyanosis, clubbing, or edema. DIAGNOSTIC STUDIES/LAB DATA: CBC shows normal white count. Hemoglobin and hematocrit shows mild anemia. Platelet count was minimally low at 103. INR minimally elevated at 1.22. Comprehensive metabolic panel shows creatinine stable at 2.36. Bicarb minimally decreased to 20. Lactic acid normal. Troponin minimally elevated at 0.11 and then went up further to 0.12. LFTs were within normal limits. B-natriuretic peptide 511. Chest x-ray appeared to have mild pulmonary congestion, but otherwise enlarged cardiac silhouette, but this was a portable image so difficult to . CT brain was read as no acute intracranial findings. EKG: Original EKG upon arrival to the ER was read as AFib given questionable atrial activity as P waves were indistinguishable. Repeat EKG showed sinus francisco at 59 beats per minute, but the P waves were a bit more evident on this and the rhythm was pretty regular, although there was PVC. Complex is twice but the rhythm much under the same synchronous rhythm with the evidence of small P waves suggesting a sinus based rhythm. There is also some intraventricular conduction delay. The patient does have history of this ventricular delay noted as far back as 2010 EKG, which was the only older EKG we could see, and at that point, the patient had right bundle-branch block. There is no ST segment elevation. Some T- wave flattening and inversion was noted on today's EKG. IMPRESSION: This is an 79-year-old gentleman with multiple medical problems including hypertension; dyslipidemia; chronic kidney disease, stage 4; here due to chest pain and also intermittent confusion and progressive balance issues, on physical exam having minimally unequal pupils, but no obvious neurological deficit with respect to strength or any sensation. ASSESSMENT: 1. Chest pain: Rule out any acute coronary syndrome. The patient does have minimally elevated troponin, but not high enough to call an myocardial infarction. This could be due to the patient's chronic kidney disease causing decreased clearance of troponin. For now, we will check echocardiogram in the morning. Cardiology is already consulted and will evaluate patient in the morning. 2. Possible atrial fibrillation, however, the patient shows more of a sinus francisco picture. We will monitor the rhythm on telemetry for now. The patient was notified by his correctional medicine physician, Dr. Conte, that he may need a pacemaker in the near future. 3. Altered mental status: We will get an MRI in the morning and consult Neurology to evaluate the patient. This could be just an early dementia as does state that he has been having memory lapses and CT brain so far has been negative. We cannot do any contrast due to his chronic kidney disease. 4. History of hypertension: We will start the patient's metoprolol, but with holding parameters for his heart rate. 5. History of dyslipidemia: Continue his Lipitor. We will check lipid panel and fasting lipid panel. 6. Elevated random glucose: We will check an A1c in the morning. 7. History of gout: Continue allopurinol. 8. History of gastroesophageal reflux disease: Continue his Protonix. 9. DVT prophylaxis: With sequential compression device. 10. Code status: Full code with being the healthcare proxy. [id number] #: [id number] MTDD
[2019-08-02 03:07] LABS: Troponin I 0.11 ng/mL (<0.04)
[2019-08-02 07:11] LABS: ABS Eosinophils 0.2 10^3/ul (0-0.6); ABS Monocytes 0.8 10^3/ul (0-0.8); ABS Neutrophils 6.8 10^3/ul (1.5-7.7); Eosinophil % 1.9 %; Hematocrit 37 % (42-52); Hemoglobin 12.1 g/dL (14.0-18.0); Lymphocyte % 11.5 %; Mean Corpuscular HGB Conc 33 g/dL (31-36); Mean Corpuscular Hemoglobin 34 pg (27-31); Mean Corpuscular Volume 102 fL (80-94); Mean Platelet Volume 9.9 fL (7.4-10.4); Platelet Count 102 10^3/uL (150-450); Red Blood Count 3.58 10^6 /uL (4.18-5.48); Red Cell Distribution Width 14 % (10-15); White Blood Count 8.8 10^3/uL (3.5-10.8)
[2019-08-02 07:28] LABS: BUN/Creatinine Ratio 13.6 (8-20); Calcium 8.8 mg/dL (8.6-10.3); EGFR African American 34.8 (>60); EGFR Non-African American 28.8 (>60); HDL Cholesterol 26.9 mg/dL; Potassium 4.2 mmol/L (3.5-5.0)
[2019-08-02 07:33] LABS: Troponin I 0.13 ng/mL (<0.04)
[2019-08-02] MEDS: Allopurinol TAB* 100 MG PO SCH (08:52)
[2019-08-02] MEDS: Pantoprazole TAB * 40 MG TAB PO SCH (08:52)
[2019-08-02] MEDS: METHYLCELLULOSE 500 MG PO SCH (08:52)
[2019-08-02] MEDS: Multivitamins/Minerals TAB PO SCH (08:52)
[2019-08-02] MEDS ORDERED: Metoprolol Succinate XL TAB* 25 MG PO SCH (09:00)
[2019-08-02] MEDS ORDERED: Furosemide IV* 10 MG/ML VIAL (40 MG) IV ONE (09:28)
[2019-08-02 09:34] LABS: Urine Appearance Clear; Urine Bilirubin Negative (Negative); Urine Blood Negative (Negative); Urine Color Yellow; Urine Glucose Negative (Negative); Urine Ketones Negative (Negative); Urine Nitrite Negative (Negative); Urine Protein Negative (Negative); Urine Specific Gravity 1.011 (1.010-1.030); Urine Urobilinogen Negative (Negative)
[2019-08-02] MEDS ORDERED: Perflutren Lipid Microsphere* 3 ML VIAL ONE (10:32)
[2019-08-02 12:43] LABS: Troponin I 0.12 ng/mL (<0.04)
--- NOTE | 2019-08-02 13:28 | CONS ---
CC: Dr. Garg; Dr. Conte * CONSULTATION REPORT: DATE OF CONSULT: 08/02/19 ATTTENDING OBIEE ARCHITECT: Dr. Hughes * (DICTATED BY KATHYA ACOSTA NP) PRIMARY PHYSICIAN: Dr. Garg. PRIMARY OBIEE ARCHITECT: Dr. Conte. CHIEF COMPLAINT: Chest pain, shortness of breath, increased confusion, weakness , and diaphoresis. HISTORY OF PRESENT ILLNESS: This is a pleasant 79-year-old male patient who follows Dr. Conte of our practice due to a notable history of coronary artery disease who underwent PTCA with coronary stenting to right coronary artery with thrombectomy in 2010 due to ACS, 4 cm ascending aorta aneurysm, diastolic dysfunction, chronic kidney disease, baseline creatinine 2 to 2.5, and known right bundle branch block. The patient was last evaluated in our practice on 06/21/19. At that time, he was stable and asymptomatic. No medication changes or diagnostic studies were ordered. He states that since then in the past 2 to 3 weeks, he has been noticing increased confusion with increased falls, dyspnea on exertion, 10- pound weight gain with increased shortness of breath. He states that he will develop left-sided chest pain associated with inspiration and coughing. Denies orthopnea. Denies edema. Does report abdominal distention. Apparently, Monday evening, he had increased weakness and confusion. His whom I personally spoke with states that the patient went to bed early around 8:30 p.m. Apparently, before going to bed, he had a profound weakness with associated diaphoresis, confusion. Apparently, he was unable to undress himself and she had to assist him into the bed, although he was not able to completely get on the bed. Apparently, his legs were hanging off the end of the bed. She states that eventually, he did go to bed. He did not report chest pain. Around 11:30 p.m., he woke up and was confused and thought that it was the morning hours and he had to get ready for an appointment. She states that she had to reorient him to time and he was able to go back to bed. On Monday, he followed up with PCP due to concerning symptoms, Dr. Garg, who obtained blood work. Apparently, Dr. Black was also involved and added on labs to outpatient blood work that was obtained. He was directed to go to the emergency department according to the patient because of heart failure. On being evaluated in the emergency department, he had a troponin elevation and was admitted to telemetry for chest pain, rule out ACS. Neurology was consulted and the patient did undergo a brain CT on 08/01/19 due to increased confusion and falls. Per Radiology report, there was no acute intracranial findings. Brain MRI and neuro evaluation are pending at this time and we have been asked to see the patient in consultation. Initial ECG was concerning for AFib. However, upon further review his R to R interval is regular. It is difficult to identify definitive P waves. I have asked for initial ECG to be amplified. He has a known right bundle branch block. He has been having occasional PVCs. He has not had AFib on telemetry, which I personally reviewed. Currently, he is asymptomatic and he offers no complaints at this time. Last echocardiogram, according to our outpatient medical records, which were obtained was 04/30/18; per report LVEF 55% to 60%, normal wall motion, moderate left ventricular hypertrophy, right ventricular systolic pressure was 24.9 mmHg , ascending proximal aorta was 4 cm. Last ischemic evaluation according to our medical records was via cardiac catheterization in 2010; per report, left main was normal in size, bifurcate into the LAD and circumflex. There was no stenosis. LAD was normal in size, gave off to 2 diagonal vessels. No evidence of stenosis. Left circumflex was normal in size, gave off to 2 obtuse marginal branches. There was no stenosis. Right coronary artery was moderate in size with dominant vessel giving off to PDA. Proximal portion of the artery had 99% stenosis. There was a dissection of the proximal portion with extensive thrombus in the first one-third of the artery. The patient at that time was sent to [facility], where he underwent successful percutaneous transluminal coronary angioplasty and stenting of the right coronary artery and successful thrombectomy of the right coronary artery. He has not had a catheterization since then. PAST MEDICAL HISTORY: 1. Coronary artery disease. 2. Chronic kidney disease. 3. 4.0 cm proximal ascending aortic aneurysm. 4. Hypertension. 5. Hyperlipidemia. 6. Thrombocytopenia. 7. Anemia. PAST SURGICAL HISTORY: Includes, 1. PTCA with cardiac stenting to right coronary artery, 2010. 2. Right knee surgery. HOME MEDICATIONS: According to admission med rec includes: 1. Aspirin 81 mg a day. 2. Atorvastatin 40 mg p.o. q.h.s. 3. Metoprolol 25 mg a day. 4. Protonix 40 mg a day. 5. Sertraline 100 mg p.o. q.h.s. 6. Nitroglycerin 0.4 mg sublingual q.5 minutes up to 3 doses p.r.n. 7. Fiber 500 mg p.o. daily. 8. Multivitamin daily. ALLERGIES: No known drug allergies. Denies allergies to contrast dye or shellfish or aspirin. FAMILY HISTORY: Noncontributory. SOCIAL HISTORY: The patient is , lives at home with his , whom I personally spoke with. He is retired. Denies tobacco use. Rarely consumes alcohol. Denies drug use. Ambulates independently. He remains active. He helps with care of his home and working on vehicles. REVIEW OF SYSTEMS: All systems have been reviewed and otherwise negative except as above mentioned in the HPI. PHYSICAL EXAMINATION: Temperature 98, pulse 58, respirations 16, oxygenation 95 % on room air, blood pressure 120/68. The patient was lying in bed, watching TV upon entering room. Head of bed elevated at 30 degrees. Appears in no apparent distress. He is alert and oriented x3, although he does have some difficulty recalling information, but given enough time, he is able to answer all questions appropriately. HEENT: Head is atraumatic, normocephalic, oral mucosa is moist. Tongue is in midline. Neck: Supple. Trachea midline. Positive JVD. No carotid bruits are heard. Cardiac: Diminished S1, S2. Regular rate and rhythm. 2/5 diastolic aortic murmur auscultated at the right sternal border. No gallop or rub noted. Lungs: Auscultated posteriorly, slight inspiratory rales noted throughout. No evidence of retraction. Respirations are unlabored. /GI: Abdomen is protuberant, nontender. Normoactive bowel sounds x4. No renal bruit auscultated. Peripheral vascular: 2+ brachial and dorsalis pedis pulse palpated bilaterally and symmetrically. Extremities: No pedal edema, no clubbing, no cyanosis. DIAGNOSTIC STUDIES/LAB DATA: Blood work obtained 08/02/19: White count 8.8, hemoglobin 12.1, hematocrit 37, platelets 102. INR is 1.2. Sodium 141, potassium 4.2, chloride 102, carbon dioxide 22, BUN 30, creatinine 2.2. Troponin was 0.11 at presentation. Last troponin was 0.13 on 08/02/19. BNP 511. LDL 36. ECG obtained 08/02/19: Sinus bradycardia with known right bundle branch block, isolated PVC. First degree AV block with possible wandering pacemaker. Chest x-ray 08/01/19 per report; possible small left pleural effusion. Brain MRI pending. Echocardiogram pending. ASSESSMENT AND PLAN: 1. Troponinemia; no ischemic ECG changes appreciated compared to outpatient EKG on 07/25/19. His initial ECG was concerning for atrial fibrillation, however, his R-R interval was regular. There is no definitive P waves, but I have asked ECG to be amplified. There has been no atrial fibrillation noted on telemetry. Of concern is the past 2 to 3 weeks, he has been having increased confusion, pleuritic chest pain, dyspnea on exertion and weight gain. The patient appears to have right-sided heart failure with positive hepatojugular reflux, abdominal distention and reported 10-pound weight gain. We will give 40 mg IV Lasix now and order 20 mg p.o. Lasix starting tomorrow. Echocardiogram is pending. Given pleuritic chest pain, we will rule out effusion. Continue to cycle isoenzymes. Total CK was normal. He is on aspirin , statin, beta-blockade therapy. Of note, he has known thrombocytopenia. INR is elevated at 1.2. We will follow closely after echocardiogram and make further recommendations. 2. History of diastolic heart failure; the patient appears decompensated. We will diurese gently given known chronic kidney disease. Recommend checking daily BMP. Blood pressure is controlled on metoprolol therapy. Await echocardiogram. 3. History of right bundle branch block, with new first degree atrioventricular block and possible wandering pacemaker. We will continue to monitor on telemetry. In the past, the patient was approached about possible pacemaker implantation. It is possible the episode that occurred on Monday evening was related to bradyarrhythmia. We will follow closely. 4. History of coronary artery disease with prior thrombectomy, percutaneous coronary angioplasty and stenting to right coronary artery in 2010 due to acute coronary syndrome. He is currently chest pain free, although states in the past 2 to 3 weeks, he has had exertional dyspnea with pleuritic chest pain. We will continue aspirin, statin, beta-blockade therapy. Troponin has plateaued, 2.1, 2.3. We will await echo. Rule out wall motion abnormality. 5. History of thrombocytopenia. Platelets are stable at this time. However, he does have slight INR elevation, which could be related to hepatic congestion. Given confusion, we will add ammonia level. 6. Disposition, pending course. Dr. Salazar Hughes has personally seen and examined the patient. He agrees with the above assessment and plan. Thank you for this kind consultation. For any future questions or concerns, please do not hesitate to contact our practice. We will follow closely after echocardiogram and make further recommendations. KATHYA ACOSTA, KAILYN [id number]/[facility] #: [id number] Patient examined and reviewed with Ms. Acosta. Agree with above plan. Gallo Hughes MD 08.06.19 4;46 pm. RICH
--- NOTE | 2019-08-02 13:59 | ECHO ---
*[facility]* [place] [address] Fax #: [phone] Transthoracic Echocardiogram Patient: Truman Man : 1940 Study Date: 08/02/2019 Age: 79 Gender: M HR: 59 bpm Height: 68 in /172.7 cm BSA: 2.15 m^2 Weight: 224.5 lb /102.1 kg BMI: 34.2 kg/m^2 *Referring Physician: * Selvin Reynaga *Reading Physician: * Salazar Hughes MD Indications: TIA. History: GERD,CKD. Coronary artery disease. Risk factors: Hypertension. Dyslipidemia. Labs, prior tests, procedures, and surgery: Catheterization (2010). There was a stenosis which was treated with a stent. Conclusions Summary: - Left ventricle: The cavity size is normal. Wall thickness is mildly increased. Systolic function is normal. The estimated ejection fraction is 60-65%. Systolic function is improved from the study of January 2011. The ejection fraction has increased from 50-55% and the apical hypokinesis is no longer seen. The subtle inferior hypokinesis was not reported last time. Wall motion is overall normal to hyperdynamic; cannot exclude subtle relative inferior hypokinesis., Doppler parameters are consistent with abnormal left ventricular relaxation (grade 1 diastolic dysfunction). - Right ventricle: Systolic function is mildly reduced. - Atrial septum: Bubble study was negative - Mitral valve: There is trace to mild regurgitation. - Tricuspid valve: There is mild regurgitation. Study data: Transthoracic echocardiogram. Procedure: Transthoracic echocardiography was performed. Image quality was suboptimal. Intravenous Definity , 3 mlswas administered. A bubble study was performed. Agitated saline was used for the bubble study. Complete 2D, spectral Doppler, and color flow Doppler. Location: Procedure room. The previous study was not available, so comparison is made to the report of January 2011. Rhythm: Normal sinus rhythm with PVC's. Findings Left ventricle: The cavity size is normal. Wall thickness is mildly increased. Systolic function is normal. The estimated ejection fraction is 60-65%. Systolic function is improved from the study of January 2011. The ejection fraction has increased from 50-55% and the apical hypokinesis is no longer seen. The subtle inferior hypokinesis was not reported last time. Wall motion is overall normal to hyperdynamic; cannot exclude subtle relative inferior hypokinesis., Doppler parameters are consistent with abnormal left ventricular relaxation (grade 1 diastolic dysfunction). Right ventricle: Not well visualized. The cavity size is normal. Wall thickness is normal. Systolic function is mildly reduced. Ventricular septum: Well visualized. The ventricular septum is normal. Left atrium: Well visualized. The atrium is normal in size. Right atrium: Well visualized. The atrium is normal in size. Atrial septum: Well visualized. No defect or patent foramen ovale is identified. Bubble study was negative Mitral valve: Well visualized. The leaflets are moderately thickened. There is no evidence of stenosis. There is trace to mild regurgitation. Aortic valve: The valve is trileaflet. The leaflets are mildly thickened. Cusp separation is normal. Transvalvular velocity is within the normal range. There is no evidence of stenosis. There is no regurgitation. Tricuspid valve: Not well visualized. The leaflets are normal thickness. There is no evidence of stenosis. There is mild regurgitation. Pulmonic valve: Well visualized. The leaflets are normal thickness. There is no evidence of stenosis. There is no significant regurgitation. Aorta: The aorta is well visualized and normal size. The aortic root appears normal. Pericardium: There is no pericardial effusion. No evidence of pleural fluid accumulation. Pulmonary arteries: Well visualized. Systolic pressure is within the normal range. Systemic veins: Not well visualized. Pulmonary veins: Visualization of the pulmonary venous anatomy is incomplete, but a significant abnormality is unlikely. Measurements Left ventricle Value Ref Aortic valve Value Ref RAYNA, LAX 4.9 cm 4.2 - Efraín diam, ED 2.1 cm ----- 5.8 Peak v, S 1.29 m/sec ----- ESD, LAX 2.8 cm 2.5 - VTI, S 26.0 cm ----- 4.0 Mean grad, S 4.0 mm Hg ----- FS, LAX 43 % 25 - 43 Peak grad, S 7.0 mm Hg ----- PW, ED, LAX (H) 1.2 cm 0.6 - LVOT/AV, VTI ratio 0.61 ----- 1.0 FS 43 % 25 - 43 Mitral valve Value Ref PW, ED (H) 1.2 cm 0.6 - Peak E 0.8 m/sec ----- 1.0 Peak A 0.58 m/sec ----- PW/ID, ED 0.24 -------- Decel time 278 ms ----- E', lat efraín, TDI (L) 7.1 cm/sec >=10.0 Peak grad, D 2.6 mm Hg --- -- E/e', lat efraín, TDI 11 -------- Peak E/A ratio 1.4 ----- E', med efraín, TDI (L) 6.6 cm/sec >=7.0 E/e', med efraín, TDI 12 -------- Pulmonic valve Value Ref E', avg, TDI 6.9 cm/sec -------- Peak v, S 0.57 m/sec ----- E/e', avg, TDI 12 <=14 Peak grad, S 1.0 mm Hg --- -- LVOT Value Ref Tricuspid valve Value Ref Peak quincy, S 0.72 m/sec -------- TR peak v 2.58 m/sec <=2.8 VTI, S 15.8 cm -------- Peak RV-RA grad, S 27 mm Hg ----- Mean grad, S 1 mm Hg -------- Aortic root Value Ref Ventricular septum Value Ref Root diam 3.4 cm <4.3 IVS, ED (H) 1.4 cm 0.6 - Root max diam, ED 1.9 cm <4.3 1.0 Ascending aorta Value Ref Right ventricle Value Ref AAo AP diam, S 3.9 cm ----- RAYNA, LAX 3.0 cm -------- RAYNA minor ax, A4C (H) 4.5 cm 1.9 - Aortic arch Value Ref mid 3.5 Arch diam 2.7 cm ----- Left atrium Value Ref Decending aorta Value Ref ML dim, A4C 4.4 cm -------- Damir peak quincy 0.56 m/sec ----- SI dim, A4C 6.2 cm -------- Vol/bsa, ES, 1-p 32 ml/m^2 12 - 37 A4C Right atrium Value Ref SI dim, ES (H) 6.9 cm 3.4 - 5.3 ML dim, ES, A4C (H) 4.6 cm 2.6 - 4.4 SI dim, ES, A4C (H) 6.9 cm 3.4 - 5.3 Estimated RAP 8 mm Hg -------- Legend: (L) and (H) darian values outside specified reference range. Prepared and electronically signed by Salazar Hughes MD 08/02/2019 13:58
--- NOTE | 2019-08-02 15:24 | PN ---
Subjective Date of Service: 08/02/19 Interval History: Mr. Man is feeling better today. He is still having some chest pain, around the left axilla, worse with deep inspiration. He does report SOB and dizziness while ambulating, but had not been up yet during exam. Denies N/V, headache. No concerns from nursing. Family History: Unchanged from Admission Social History: Unchanged from Admission Past Medical History: Unchanged from Admission Objective Active Medications: Allopurinol (Zyloprim Tab*) 200 mg PO QAM [facility] Aspirin (Aspirin Ec Tab*) 81 mg PO BEDTIME CIND[facility] Atorvastatin Calcium (Lipitor*) 40 mg PO BEDTIME [facility] Furosemide (Lasix Tab*) 20 mg PO DAILY [facility] Metoprolol Succinate (Toprol Xl Tab*) 12.5 mg PO DAILY [facility] Multivitamins/Minerals (Theragran/Minerals Tab*) 1 tab PO DAILY [facility] Nitroglycerin (Nitroglycerin Tab 0.4 Mg*) 0.4 mg SL Q5M PRN ANGINA Non-Formulary Medication (Methylcellulose [Fiber Therapy]) 500 mg PO QAM [facility] Pantoprazole Sodium (Protonix Tab*) 40 mg PO DAILY [facility] Sertraline HCl (Zoloft*) 100 mg PO BEDTIME [facility] Vital Signs - 8 hr 08/02/19 08/02/19 08/02/19 07:36 08:00 11:36 Temperature 98 F 98.1 F Pulse Rate 58 60 Respiratory 16 16 16 Rate Blood Pressure 128/68 148/69 (mmHg) O2 Sat by Pulse 95 96 Oximetry Oxygen Devices in Use Now: None Appearance: Elderly male sitting in bed in NAD Ears/Nose/Mouth/Throat: Mucous Membranes Moist Neck: NL Appearance and Movements; NL JVP, Trachea Midline Respiratory: Symmetrical Chest Expansion and Respiratory Effort, Clear to Auscultation Cardiovascular: NL Sounds; No Murmurs; No JVD, RRR Abdominal: NL Sounds; No Tenderness; No Distention Extremities: No Edema Neurological: Alert and Oriented x 3 Lines/Tubes/Other Access: Clean, Dry and Intact Peripheral IV Result Diagrams: 08/02/19 06:59 08/02/19 06:59 Assess/Plan/Problems-Billing Assessment: Mr. Man is an 79 yo M with PMH of CAD, HLD, HTN, CKD, gout, GERD, and reported possible need for pacemaker (not clear why); who presented to the ED with c/o CP and AMS and was found to have elevated troponins. - Patient Problems (1) Chest pain Code(s): R07.9 - CHEST PAIN, UNSPECIFIED Comment: - History of CAD with stent - With elevated trop, peaking at 0.13 - No ischemic EKG changes - Appreciate Cardiology consult; will hold off on cath at this time d/t CKD - Continue aspirin, atorvastatin, metoprolol (2) Bradycardia Code(s): R00.1 - BRADYCARDIA, UNSPECIFIED Comment: - EKG reviewed by Cardiology who believes this may represent wandering pacemaker - Near syncopal episode at home earlier this week may have been secondary to bradyarrhythmia - Continue to monitor on tele (3) Acute on chronic diastolic congestive heart failure Code(s): I50.33 - ACUTE ON CHRONIC DIASTOLIC (CONGESTIVE) HEART FAILURE Comment: - Abdominal distention and reported 10lb weight gain - I&O, daily weights - Continue metoprolol, furosemide; additional IV furosemide x1 today (4) Altered mental status Code(s): R41.82 - ALTERED MENTAL STATUS, UNSPECIFIED Comment: - Transient, no episodes while in hospital - Appreciate Neuro consult - Neuro checks q4 (5) Hypertension Code(s): I10 - ESSENTIAL (PRIMARY) HYPERTENSION Comment: - Normotensive - Continue metoprolol (6) Hyperlipidemia Code(s): E78.5 - HYPERLIPIDEMIA, UNSPECIFIED Comment: - Continue atorvastastin (7) CKD (chronic kidney disease) stage 4, GFR 15-29 ml/min Code(s): N18.4 - CHRONIC KIDNEY DISEASE, STAGE 4 (SEVERE) Comment: - Creatinine at baseline (8) GERD (gastroesophageal reflux disease) Code(s): K21.9 - GASTRO-ESOPHAGEAL REFLUX DISEASE WITHOUT ESOPHAGITIS Comment : - Continue pantoprazole (9) DVT prophylaxis Code(s): Z29.9 - ENCOUNTER FOR PROPHYLACTIC MEASURES, UNSPECIFIED Comment: - SCDs (10) Full code status Code(s): Z78.9 - OTHER SPECIFIED HEALTH STATUS Comment: Status and Disposition: Inpatient. Anticipate d/c home when medically stable. Attending: Aster Thompson
--- NOTE | 2019-08-02 18:19 | CONS ---
NEUROLOGICAL CONSULTATION REPORT: DATE OF CONSULT: 08/02/19 PATIENT OF: Dr. Garg; Dr. Conte; Savanna Oliver NP HISTORY OF PRESENT ILLNESS: This is an 79-year-old man who I am asked to evaluate for confusion and instability. He says that his memory has been slowly getting worse and apparently in the past few days, there has been progressive confusion and somewhat of an unsteady gait. He says that he has been able to walk and has not fallen, but he does feel unsteady over time. He had an episode of vomiting and chest pain in the past few days prior to admission as well. PAST MEDICAL HISTORY: He has a past history of hypertension, dyslipidemia, gout , GE reflux, coronary artery disease status post 2 stents in 2010, osteoarthritis and right knee arthroplasty. He has a history of chronic kidney disease. PAST SURGICAL HISTORY: He has a history of ruptured appendix, status post appendectomy, bilateral cataract removal, right knee arthroplasty, cardiac stent in 2010. MEDICATIONS AT HOME: Include: 1. Atorvastatin 40 mg daily at bedtime. 2. Aspirin 81 mg at bedtime. 3. Zoloft 100 mg at bedtime. 4. Nitroglycerin 0.4 sublingual p.r.n. 5. Pantoprazole 40 mg daily. 6. Allopurinol 200 mg every morning. 7. Metoprolol 25 mg daily. FAMILY HISTORY: Noncontributory other than the mother having a stroke and an UT. SOCIAL HISTORY: He used to work at the [employer]. Does not smoke, drink or use drugs. He lives with his . REVIEW OF SYSTEMS: Negative in all 14 spheres other than the HPI. PHYSICAL EXAM: Temperature 98.1, pulse 60, respirations 16, blood pressure 148/ 69. He was alert, he knew his name, he knew his age, he knew he is at the hospital, but did not know what floor. He knew the president. He did not know the year, but knew that it was July. Naming and speech were fluent. Cranial nerves II through XII were intact. Fundi were benign. Motor exam revealed normal tone, strength, coordination. Romberg was slightly unsteady and he had a mildly wide based gait. Position sense was intact. Reflexes were 2+ with positive downgoing toes. DIAGNOSTIC STUDIES/LAB DATA: I reviewed his MRI scan and has not been read yet , but to me it showed generalized atrophy. There were no acute findings. His labs include a white count of 8.8, hematocrit of 37, platelets 102. INR of 1.22, PTT 30.9. BMP today had an BUN of 30, creatinine 2.2, chloride 112, hemoglobin A1c was 5.9. Troponins 0.31. LDL 36. B12 of 464. UA was negative. He has had the lung scan that is pending. IMPRESSION AND PLAN: He has congestive heart failure, which is apparently an acute component to it per hospitalist and bubble study was normal, echo with normal ejection fraction. I was unable to reach his , but given his MRI scan is shows atrophy I wonder whether he has a chronic progressive encephalopathy such as dementia. I will check folic acid and thyroid as well and I would like to see him back in the office in the home setting to assess further. He may benefit from going on Namenda or Aricept. He has some mild gait disturbance suggestive of peripheral neuropathy. Please check folate and thyroid as well and I will evaluate this further as an outpatient. I have been calling to Savanna Oliver to discuss and from the nurse point of view, his gait is stable enough that he can go back to home. I just would want to make sure that he is functioning at high enough level that he can go back home. I will discuss these issues with Savanna Oliver. Thank you for sharing his case. [id number]/[facility] #: [id number] RICH
[2019-08-02 19:03] LABS: C Reactive Protein 67.46 mg/L (<8.01)
[2019-08-02 19:18] LABS: TSH (Thyroid Stimulating Horm) 2.21 mcIU/mL (0.34-5.60)
[2019-08-02] MEDS: Aspirin EC TAB* 81 MG TAB.EC PO SCH (21:52)
[2019-08-02] MEDS: Sertraline* 100 MG TAB PO SCH (21:52)
[2019-08-02] MEDS: Atorvastatin* 40 MG TAB PO SCH (21:52)
[2019-08-03 06:40] LABS: Anion Gap 8 mmol/L (2-11); Blood Urea Nitrogen 33 mg/dL (6-24); CO2 Carbon Dioxide 24 mmol/L (22-32); Calcium 9.2 mg/dL (8.6-10.3); Chloride 110 mmol/L (101-111); EGFR African American 32.5 (>60); EGFR Non-African American 26.8 (>60); Glucose 92 mg/dL (70-100); Potassium 3.9 mmol/L (3.5-5.0); Sodium 142 mmol/L (135-145)
[2019-08-03 07:13] LABS: Folate > 20.00 ng/mL (>3.99)
[2019-08-03] MEDS ORDERED: Furosemide TAB* 20 MG PO SCH (09:00)
--- NOTE | 2019-08-03 09:14 | PN ---
Subjective Date of Service: 08/03/19 Interval History: No acute issues overnight. No chest pain, no shortness of breath. Tele: NSR. Family History: Unchanged from Admission Social History: Unchanged from Admission Past Medical History: Unchanged from Admission Objective Active Medications: Allopurinol (Zyloprim Tab*) 200 mg PO QAM [facility] Last Admin: 08/02/19 08:52 Dose: Not Given Aspirin (Aspirin Ec Tab*) 81 mg PO BEDTIME [facility] Last Admin: 08/02/19 21:52 Dose: 81 mg Atorvastatin Calcium (Lipitor*) 40 mg PO BEDTIME [facility] Last Admin: 08/02/19 21:52 Dose: 40 mg Furosemide (Lasix Tab*) 20 mg PO DAILY [facility] Metoprolol Succinate (Toprol Xl Tab*) 12.5 mg PO DAILY [facility] Multivitamins/Minerals (Theragran/Minerals Tab*) 1 tab PO DAILY [facility] Last Admin: 08/02/19 08:52 Dose: Not Given Nitroglycerin (Nitroglycerin Tab 0.4 Mg*) 0.4 mg SL Q5M PRN PRN Reason: ANGINA Non-Formulary Medication (Methylcellulose [Fiber Therapy]) 500 mg PO QAM [facility] Last Admin: 08/02/19 08:52 Dose: Not Given Pantoprazole Sodium (Protonix Tab*) 40 mg PO DAILY [facility] Last Admin: 08/02/19 08:52 Dose: Not Given Sertraline HCl (Zoloft*) 100 mg PO BEDTIME [facility] Last Admin: 08/02/19 21:52 Dose: 100 mg Vital Signs - 8 hr 08/03/19 03:17 Temperature 97.3 F Pulse Rate 60 Respiratory 20 Rate Blood Pressure 113/44 (mmHg) O2 Sat by Pulse 94 Oximetry Oxygen Devices in Use Now: None Appearance: Sitting on bed, not in distress Eyes: PERRLA Respiratory: Symmetrical Chest Expansion and Respiratory Effort, - - mild bibasilar crackles. Cardiovascular: RRR, No Edema Abdominal: NL Sounds; No Tenderness; No Distention, No Hepatosplenomegaly Extremities: No Edema Neurological: Alert and Oriented x 3 Result Diagrams: 08/02/19 06:59 08/03/19 06:14 Assess/Plan/Problems-Billing Assessment: Mr. Man is an 79 yo M with PMH of CAD, HLD, HTN, CKD, gout, GERD, and reported possible need for pacemaker (not clear why); who presented to the ED with c/o CP and AMS and was found to have elevated troponins. - Patient Problems (1) Acute on chronic diastolic congestive heart failure Current Visit: Yes Status: Acute Code(s): I50.33 - ACUTE ON CHRONIC DIASTOLIC (CONGESTIVE) HEART FAILURE SNOMED Code(s): 218756518 Comment: - improved today. - Abdominal distention and reported 10lb weight gain - I&O, daily weights - Continue metoprolol, furosemide; additional IV furosemide x1 today (2) Altered mental status Current Visit: Yes Status: Acute Code(s): R41.82 - ALTERED MENTAL STATUS, UNSPECIFIED SNOMED Code(s): 134008457 Comment: - Transient, no episodes while in hospital - Appreciate Neuro consult - Neuro checks q4 CT and MRI reviewed with no acute pathology (3) Bradycardia Current Visit: Yes Status: Acute Code(s): R00.1 - BRADYCARDIA, UNSPECIFIED SNOMED Code(s): 95491797 Comment: - EKG reviewed by Cardiology who believes this may represent wandering pacemaker - Near syncopal episode at home earlier this week may have been secondary to bradyarrhythmia - Continue to monitor on tele (4) CKD (chronic kidney disease) stage 4, GFR 15-29 ml/min Current Visit: Yes Status: Acute Code(s): N18.4 - CHRONIC KIDNEY DISEASE, STAGE 4 (SEVERE) SNOMED Code(s): 040609082 Comment: - Creatinine at baseline (5) Chest pain Current Visit: Yes Status: Acute Code(s): R07.9 - CHEST PAIN, UNSPECIFIED SNOMED Code(s): 69267322 Comment: - History of CAD with stent - With elevated trop, peaking at 0.13 - No ischemic EKG changes - Appreciate Cardiology consult; will hold off on cath at this time d/t CKD - Continue aspirin, atorvastatin, metoprolol (6) DVT prophylaxis Current Visit: Yes Status: Acute Code(s): Z29.9 - ENCOUNTER FOR PROPHYLACTIC MEASURES, UNSPECIFIED SNOMED Code(s): 104920582 Comment: - SCDs (7) Thrombocytopenia Current Visit: Yes Status: Acute Code(s): D69.6 - THROMBOCYTOPENIA, UNSPECIFIED SNOMED Code(s): 177578178 Comment: Mild thrombocytopenia. Will monitor. no evidence of bleeding. Status and Disposition: Inpatient. Anticipate d/c home when medically stable. Will discuss with cardiology- if additional testing or procedures needed.
[2019-08-03] MEDS: Metoprolol Succinate XL TAB* 25 MG PO SCH (09:15)
[2019-08-03] MEDS: Allopurinol TAB* 100 MG PO SCH (09:16)
[2019-08-03] MEDS: Multivitamins/Minerals TAB PO SCH (09:16)
[2019-08-03] MEDS: Pantoprazole TAB * 40 MG TAB PO SCH (09:16)
[2019-08-03] MEDS: Furosemide TAB* 20 MG PO SCH (09:17)
[2019-08-03] MEDS: METHYLCELLULOSE 500 MG PO SCH (09:17)
[2019-08-03] MEDS: Sertraline* 100 MG TAB PO SCH (22:03)
[2019-08-03] MEDS: Aspirin EC TAB* 81 MG TAB.EC PO SCH (22:03)
[2019-08-03] MEDS: Atorvastatin* 40 MG TAB PO SCH (22:03)
[2019-08-04] MEDS: METHYLCELLULOSE 500 MG PO SCH (09:05)
[2019-08-04] MEDS: Metoprolol Succinate XL TAB* 25 MG PO SCH (09:32)
[2019-08-04] MEDS: Allopurinol TAB* 100 MG PO SCH (09:33)
[2019-08-04] MEDS: Multivitamins/Minerals TAB PO SCH (09:33)
[2019-08-04] MEDS: Pantoprazole TAB * 40 MG TAB PO SCH (09:33)
[2019-08-04] MEDS: Furosemide TAB* 20 MG PO SCH (09:33)
--- NOTE | 2019-08-04 09:50 | PN ---
Subjective Date of Service: 08/04/19 Interval History: No acute events overnight. Planning for stress test tomorrow. No chest pain, no shortness of breath. Family History: Unchanged from Admission Social History: Unchanged from Admission Past Medical History: Unchanged from Admission Objective Active Medications: Allopurinol (Zyloprim Tab*) 200 mg PO QAM [facility] Last Admin: 08/04/19 09:33 Dose: 200 mg Aspirin (Aspirin Ec Tab*) 81 mg PO BEDTIME [facility] Last Admin: 08/03/19 22:03 Dose: 81 mg Atorvastatin Calcium (Lipitor*) 40 mg PO BEDTIME [facility] Last Admin: 08/03/19 22:03 Dose: 40 mg Furosemide (Lasix Tab*) 20 mg PO DAILY [facility] Last Admin: 08/04/19 09:33 Dose: 20 mg Metoprolol Succinate (Toprol Xl Tab*) 12.5 mg PO DAILY [facility] Last Admin: 08/04/19 09:32 Dose: 12.5 mg Multivitamins/Minerals (Theragran/Minerals Tab*) 1 tab PO DAILY [facility] Last Admin: 08/04/19 09:33 Dose: 1 tab Nitroglycerin (Nitroglycerin Tab 0.4 Mg*) 0.4 mg SL Q5M PRN PRN Reason: ANGINA Non-Formulary Medication (Methylcellulose [Fiber Therapy]) 500 mg PO QAM [facility] Last Admin: 08/04/19 09:05 Dose: Not Given Pantoprazole Sodium (Protonix Tab*) 40 mg PO DAILY [facility] Last Admin: 08/04/19 09:33 Dose: 40 mg Sertraline HCl (Zoloft*) 100 mg PO BEDTIME [facility] Last Admin: 08/03/19 22:03 Dose: 100 mg Vital Signs - 8 hr 08/04/19 08/04/19 03:32 05:02 Temperature 99.5 F Pulse Rate 57 61 Respiratory 20 Rate Blood Pressure 114/53 (mmHg) O2 Sat by Pulse 96 Oximetry Oxygen Devices in Use Now: None Appearance: Sitting on chair, not in distress Eyes: PERRLA Ears/Nose/Mouth/Throat: Mucous Membranes Moist Respiratory: - - mild bibasilar crackles. no tachypnea Cardiovascular: NL Sounds; No Murmurs; No JVD, RRR Abdominal: - - mild abdominal distention with ascites Extremities: No Edema Result Diagrams: 08/02/19 06:59 08/03/19 06:14 Assess/Plan/Problems-Billing Assessment: Mr. Man is an 79 yo M with PMH of CAD, HLD, HTN, CKD, gout, GERD, and reported possible need for pacemaker (not clear why); who presented to the ED with c/o CP and AMS and was found to have elevated troponins. - Patient Problems (1) Acute on chronic diastolic congestive heart failure Current Visit: Yes Status: Acute Code(s): I50.33 - ACUTE ON CHRONIC DIASTOLIC (CONGESTIVE) HEART FAILURE SNOMED Code(s): 640516108 Comment: improving slowly - Abdominal distention and reported 10lb weight gain - I&O, daily weights - Continue metoprolol, furosemide; additional IV furosemide x1 today - plan for stress test tomorrow. (2) Altered mental status Current Visit: Yes Status: Acute Code(s): R41.82 - ALTERED MENTAL STATUS, UNSPECIFIED SNOMED Code(s): 462609932 Comment: - Transient, no episodes while in hospital - Appreciate Neuro consult - Neuro checks q8Hrs CT and MRI reviewed with no acute pathology (3) Bradycardia Current Visit: Yes Status: Acute Code(s): R00.1 - BRADYCARDIA, UNSPECIFIED SNOMED Code(s): 32601639 Comment: - EKG reviewed by Cardiology who believes this may represent wandering pacemaker - Near syncopal episode at home earlier this week may have been secondary to bradyarrhythmia - Continue to monitor on tele (4) CKD (chronic kidney disease) stage 4, GFR 15-29 ml/min Current Visit: Yes Status: Acute Code(s): N18.4 - CHRONIC KIDNEY DISEASE, STAGE 4 (SEVERE) SNOMED Code(s): 344549358 Comment: - Creatinine at baseline (5) Chest pain Current Visit: Yes Status: Acute Code(s): R07.9 - CHEST PAIN, UNSPECIFIED SNOMED Code(s): 32726637 Comment: - History of CAD with stent - With elevated trop, peaking at 0.13 - No ischemic EKG changes - Appreciate Cardiology consult; will hold off on cath at this time d/t CKD - Continue aspirin, atorvastatin, metoprolol - stress test for tomorrow. (6) DVT prophylaxis Current Visit: Yes Status: Acute Code(s): Z29.9 - ENCOUNTER FOR PROPHYLACTIC MEASURES, UNSPECIFIED SNOMED Code(s): 022917342 Comment: - SCDs (7) Thrombocytopenia Current Visit: Yes Status: Acute Code(s): D69.6 - THROMBOCYTOPENIA, UNSPECIFIED SNOMED Code(s): 595053936 Comment: Mild thrombocytopenia. Will monitor. no evidence of bleeding.
[2019-08-04] MEDS: Atorvastatin* 40 MG TAB PO SCH (20:35)
[2019-08-04] MEDS: Aspirin EC TAB* 81 MG TAB.EC PO SCH (20:35)
[2019-08-04] MEDS: Sertraline* 100 MG TAB PO SCH (20:35)
[2019-08-05 06:05] LABS: BUN/Creatinine Ratio 15.9 (8-20); EGFR African American 29.9 (>60); EGFR Non-African American 24.7 (>60); Potassium 4.1 mmol/L (3.5-5.0)
[2019-08-05] MEDS: METHYLCELLULOSE 500 MG PO SCH (07:59)
--- NOTE | 2019-08-05 08:32 | PN ---
<Roseline Acosta - Last Filed: 08/05/19 08:26> Subjective Date of Service: 08/05/19 - Elevated troponin, chest pain, sob confusion Interval History: No events last night, patient offers no complaints. he denies chest pain, sob, dizziness at this time but adds " I'm not doing anything". Medications Active Medications: Allopurinol (Zyloprim Tab*) 200 mg PO QAM [facility] Last Admin: 08/04/19 09:33 Dose: 200 mg Aspirin (Aspirin Ec Tab*) 81 mg PO BEDTIME [facility] Last Admin: 08/04/19 20:35 Dose: 81 mg Atorvastatin Calcium (Lipitor*) 40 mg PO BEDTIME [facility] Last Admin: 08/04/19 20:35 Dose: 40 mg Metoprolol Succinate (Toprol Xl Tab*) 12.5 mg PO DAILY [facility] Last Admin: 08/04/19 09:32 Dose: 12.5 mg Multivitamins/Minerals (Theragran/Minerals Tab*) 1 tab PO DAILY [facility] Last Admin: 08/04/19 09:33 Dose: 1 tab Nitroglycerin (Nitroglycerin Tab 0.4 Mg*) 0.4 mg SL Q5M PRN PRN Reason: ANGINA Non-Formulary Medication (Methylcellulose [Fiber Therapy]) 500 mg PO QAM [facility] Last Admin: 08/05/19 07:59 Dose: Not Given Pantoprazole Sodium (Protonix Tab*) 40 mg PO DAILY [facility] Last Admin: 08/04/19 09:33 Dose: 40 mg Sertraline HCl (Zoloft*) 100 mg PO BEDTIME [facility] Last Admin: 08/04/19 20:35 Dose: 100 mg Objective Vital Signs: Temp Pulse Resp BP Pulse Ox 98.0 F 64 20 107/49 95 08/05/19 03:18 08/05/19 03:18 08/05/19 03:18 08/05/19 03:18 08/05/19 03:18 Oxygen Devices in Use Now: None Appearance: lying in bed watching TV, NAD, A+O x3 cooperative with exam. Eyes: No Scleral Icterus Ears/Nose/Mouth/Throat: NL Teeth, Lips, Gums, Clear Oropharnyx Neck: NL Appearance and Movements; NL JVP, Trachea Midline Respiratory: Symmetrical Chest Expansion and Respiratory Effort, Clear to Auscultation Cardiovascular: NL Sounds; No Murmurs; No JVD, RRR, No Edema Neurological: Alert and Oriented x 3 Lines/Tubes/Other Access: Clean, Dry and Intact Peripheral IV Laboratory Results: 08/02/19 06:59 08/05/19 04:32 INR (Anticoag Therapy) 1.22 (0.82-1.09) H 08/01/19 18:50 APTT 30.9 seconds (26.0-38.0) 08/01/19 18:50 Total Bilirubin 0.70 mg/dL (0.2-1.0) 08/01/19 18:50 AST 36 U/L (13-39) 08/01/19 18:50 ALT 34 U/L (7-52) 08/01/19 18:50 Alkaline Phosphatase 86 U/L (34-104) 08/01/19 18:50 CK-MB (CK-2) 3.3 ng/mL (0.6-6.3) 08/01/19 18:50 B-Natriuretic Peptide 511 pg/mL (<=100) H 08/01/19 18:50 Total Protein 6.3 g/dL (6.4-8.9) L 08/01/19 18:50 Albumin 3.6 g/dL (3.2-5.2) 08/01/19 18:50 Globulin 2.7 g/dL (2-4) 08/01/19 18:50 Albumin/Globulin Ratio 1.3 (1-3) 08/01/19 18:50 Triglycerides 89 mg/dL 08/02/19 06:59 Cholesterol 81 mg/dL 08/02/19 06:59 LDL Cholesterol 36 mg/dL 08/02/19 06:59 HDL Cholesterol 26.9 mg/dL 08/02/19 06:59 TSH 2.21 mcIU/mL (0.34-5.60) 08/02/19 18:28 08/01/19 08/01/19 08/02/19 18:50 21:48 00:12 Troponin I 0.11 H* 0.12 H* 0.12 H* 08/02/19 08/02/19 08/02/19 02:33 06:59 11:27 Troponin I 0.11 H* 0.13 H* 0.12 H* Laboratory Results - last 24 hr 08/05/19 04:32 Sodium 139 Potassium 4.1 Chloride 110 Carbon Dioxide 22 Anion Gap 7 BUN 40 H Creatinine 2.52 H Est GFR ( Amer) 29.9 Est GFR (Non-Af Amer) 24.7 BUN/Creatinine Ratio 15.9 Glucose 91 Calcium 9.0 Diagnostic Imaging: *[facility]* [place] [address] Fax #: [phone] Transthoracic Echocardiogram Patient: Truman Man : 1940 Study Date: 08/02/2019 Age: 79 Gender: M HR: 59 bpm Height: 68 in /172.7 cm BSA: 2.15 m^2 Weight: 224.5 lb /102.1 kg BMI: 34.2 kg/m^2 *Referring Physician: * Selvin Reynaga *Reading Physician: * Salazar Hughes MD Indications: TIA. History: GERD,CKD. Coronary artery disease. Risk factors: Hypertension. Dyslipidemia. Labs, prior tests, procedures, and surgery: Catheterization (2010). There was a stenosis which was treated with a stent. Conclusions Summary: - Left ventricle: The cavity size is normal. Wall thickness is mildly increased. Systolic function is normal. The estimated ejection fraction is 60-65%. Systolic function is improved from the study of January 2011. The ejection fraction has increased from 50-55% and the apical hypokinesis is no longer seen. The subtle inferior hypokinesis was not reported last time. Wall motion is overall normal to hyperdynamic; cannot exclude subtle relative inferior hypokinesis., Doppler parameters are consistent with abnormal left ventricular relaxation (grade 1 diastolic dysfunction). - Right ventricle: Systolic function is mildly reduced. - Atrial septum: Bubble study was negative - Mitral valve: There is trace to mild regurgitation. - Tricuspid valve: There is mild regurgitation. This report is only to be considered final once signed by the Provider(s) as displayed in the "<Electronically Signed by >" field (s). Absence of a signature indicates the report is in a draft status and still needs to be finalized. In the event this document was created by someone other than the signing Provider, the individual initiating the document will be listed in the "Entered by:" or "Dictated by:" waddell. EKG Data: 08/04/2019; Sinus rhythm with IVCD. There is a wandering baseline however, there does appear to be lateral ST depression and diffuse non specific TW changes. rate 64 Telemetry; reviewed. Sinus rhythm rate 50-60's with occasional PVCs. No VT. Assessment/Plan #1; Troponinemia; Etiology not clear given patient presented with decompensated DHF. He has diuresed well. renal function is starting to elevated thus will d/c lasix given known CKD. He is euvolemic on exam today. He is to be risk stratified with lexiscan stress test today. Denies recurrent chest pain since admit. On ASA, Bblocker and statin therapy. #2 Decompensated DHF; Responded well to diuresis. On Toprol therapy. BP controlled. Will d/c loop diuretic given CKD. #3 h/o CKD baseline creat 2.2-2.5 appears stable. #4 HLD; on statin therapy goal LDL < 70 #5 Disposition pending course. patient is a full code. To have Lexiscan ST today will f/u after. Attending: Gómez Menchaca <Gómez Menchaca - Last Filed: 08/06/19 08:33> Objective Vital Signs: Temp Pulse Resp BP Pulse Ox 97.9 F 62 18 94/47 99 08/05/19 15:15 08/05/19 15:15 08/05/19 15:15 08/05/19 15:15 08/05/19 15:15 Laboratory Results: 08/02/19 06:59 08/05/19 04:32 INR (Anticoag Therapy) 1.22 (0.82-1.09) H 08/01/19 18:50 APTT 30.9 seconds (26.0-38.0) 08/01/19 18:50 Total Bilirubin 0.70 mg/dL (0.2-1.0) 08/01/19 18:50 AST 36 U/L (13-39) 08/01/19 18:50 ALT 34 U/L (7-52) 08/01/19 18:50 Alkaline Phosphatase 86 U/L (34-104) 08/01/19 18:50 CK-MB (CK-2) 3.3 ng/mL (0.6-6.3) 08/01/19 18:50 B-Natriuretic Peptide 511 pg/mL (<=100) H 08/01/19 18:50 Total Protein 6.3 g/dL (6.4-8.9) L 08/01/19 18:50 Albumin 3.6 g/dL (3.2-5.2) 08/01/19 18:50 Globulin 2.7 g/dL (2-4) 08/01/19 18:50 Albumin/Globulin Ratio 1.3 (1-3) 08/01/19 18:50 Triglycerides 89 mg/dL 08/02/19 06:59 Cholesterol 81 mg/dL 08/02/19 06:59 LDL Cholesterol 36 mg/dL 08/02/19 06:59 HDL Cholesterol 26.9 mg/dL 08/02/19 06:59 TSH 2.21 mcIU/mL (0.34-5.60) 08/02/19 18:28 08/01/19 08/01/19 08/02/19 18:50 21:48 00:12 Troponin I 0.11 H* 0.12 H* 0.12 H* 08/02/19 08/02/19 08/02/19 02:33 06:59 11:27 Troponin I 0.11 H* 0.13 H* 0.12 H* Assessment/Plan Points of Discussion: Stress test normal No ischemia normal LV function Rec: d/c home follow up with Dr Vic Conte as out pt
[2019-08-05] MEDS: Pantoprazole TAB * 40 MG TAB PO SCH (10:25)
[2019-08-05] MEDS: Multivitamins/Minerals TAB PO SCH (10:25)
[2019-08-05] MEDS: Metoprolol Succinate XL TAB* 25 MG PO SCH (10:25)
[2019-08-05] MEDS: Allopurinol TAB* 100 MG PO SCH (10:25)
[2019-08-05] MEDS ORDERED: Regadenoson* 0.4 MG/5 ML SYRINGE ONE (12:35)
[2019-08-05 15:34] VITALS: BP 94/47
--- NOTE | 2019-08-05 20:47 | DS ---
CC: Dr. Jack Ardon * DISCHARGE SUMMARY: DATE OF ADMISSION: 08/02/19 DATE OF DISCHARGE: 08/05/19 PRIMARY CARE PHYSICIAN: Hernan Garg MD. HAND [employer] MENDER: Toney Conte MD. NEUROLOGIST: Jack Ardon MD. ATTENDING PHYSICIAN: Gabbi Reynaga MD * (dictated by JESSE Pisano). PRIMARY DIAGNOSES: 1. Atypical chest pain. 2. Altered mental status. SECONDARY DIAGNOSES: 1. Coronary artery disease, status post stenting. 2. Hypertension. 3. Dyslipidemia. 4. Gastroesophageal reflux disease. 5. Gout. STUDIES WHILE IN THE HOSPITAL: 1. Transthoracic echocardiogram, summary: LV cavity size normal. Wall thickness mildly increased. Systolic function normal. EF has increased from 50 % to 55% and apical hypokinesis is no longer seen. Subtle inferior hypokinesis not reported last time. Wall motion overall normal to hyperdynamic. Cannot exclude subtle relative inferior hypokinesis. Doppler parameters consistent with abnormal LV relaxation, grade 1 diastolic dysfunction. RV mildly reduced systolic function. Negative bubble study. [id number] mitral regurg. Mild tricuspid regurg. 2. MRI brain without contrast, impression: No acute intracranial abnormality. [id number] cerebral volume loss. 3 Nuclear medicine lung perfusion event , impression: Low probability scan for pulmonary embolus. 4. Nuclear cardiac stress test, impression: Septal hypokinesis. No definitive reversible perfusion defects. Assessment: Low risk. EKG portion: Nondiagnostic due to resting EKG abnormalities. CONSULTATIONS WHILE IN THE HOSPITAL: 1. Cardiology. Troponinemia. The patient is with increased confusion, pleuritic chest pain, dyspnea on exertion, weight gain. Appears to have right- sided heart failure with positive hepatojugular reflux, abdominal distention, 10 -pound weight gain, IV Lasix, echo pending, isoenzymes, history of RBBB, new first-degree AV block, possibly wanted pacemaker continue to monitor on tele. In the past, the patient was approached about possible pacemaker implantation. Possible that episode occurring on Monday evening was related to bradyarrhythmia. History of CAD, RCA angioplasty and stenting in 2010. Chest pain free, although over the last 2 to 3 weeks, he has had exertional dyspnea and pleuritic chest pain. Continue aspirin, statin, and beta-derick. Rule out wall motion abnormality. 2. Neurology: Impression and plan: He has CHF. Bubble study normal. Echo with normal EF. Unable to read twice, but given MRI scan is positive wonder whether he has chronic progressive encephalopathy plus dementia. Check folic acid and thyroid. Follow up outpatient. Mild gait disturbance suggestive of peripheral neuropathy. Check folate and thyroid. I will evaluate this further outpatient. DISCHARGE MEDICATIONS: Home Medications: 1. Allopurinol 200 mg p.o. daily. 2. Aspirin 81 mg p.o. daily. 3. Atorvastatin 40 mg p.o. at bedtime. 4. Methylcellulose 500 mg p.o. daily. 5. Centrum Silver Men tab 1 tab p.o. daily. 6. Nitroglycerin 0.4 mg sublingual q.5 minutes p.r.n. 7. Pantoprazole 40 mg p.o. daily. 8. Sertraline 100 mg p.o. daily. Changed Home Medication: 1. Metoprolol succinate XL reduced to 12.5 mg p.o. daily. HISTORY OF PRESENT ILLNESS/HOSPITAL COURSE: Mr. Man is an 79-year-old male with past medical history of CAD; status post stenting in 2010, hypertension, and dyslipidemia who presented to the ER on 08/02/19 with his due to progressive confusion, unsteady gait, and chest pain. For full and complete details, please see the history and physical dictated by Selvin Reynaga MD. But in short, the patient presents with these symptoms present times approximately 4 to 5 days. Primary care provider recommended that the patient be seen in the ER. He was admitted to the hospital. The patient presented with chest pain. Troponins were trended with a high of 0.13. The patient reported that his chest pain was pleuritic in nature, but that there was some radiating component. Lung scan was performed and revealed no evidence for PE. Cardiology was consulted. Echo was ordered and his EF was within normal limits. No sign of effusion. He was gently diuresed due to some decompensated diastolic heart failure. The patient was monitored on telemetry. He was noted to have a new first-degree AV block, possible wandering pacemaker. The patient will follow outpatient with Dr. Conte regarding further management. Nuclear med stress testing was performed. EKG portion was nondiagnostic. Nuclear medicine portion revealed low risk with an area of septal hypokinesis with no definitive reversible perfusion defects. The patient 's pleuritic chest pain could be due to musculoskeletal injury from some heavy lifting he had been doing recently. The patient was also noted to have some gait abnormalities and some altered mentation. CT of the brain revealed no acute intracranial findings. MRI of the brain was also without acute abnormality, but revealed [id number] cerebral volume loss. Dr. Ardon recommends followup outpatient at his clinic. The patient will follow with Dr. Ardon as an outpatient. He recommends further evaluation for peripheral neuropathy and possible chronic progressive encephalopathy plus dementia. On the day of discharge, the patient is very eager to be discharged. His family is in the room with him. He is out of bed standing, wishing to get dressed so he can be discharged. He has no chest pain and denies chest pain. Over the last approximately 3 days, he denies diaphoresis. He does note that he is short of breath at times, but currently is feeling well. He has no dizziness, lightheadedness, abdominal pain, nausea, vomiting, diarrhea, constipation, myalgias, or arthralgias. Mr. Man will be discharged to home. CONDITION: Good. DIET: Heart healthy. ACTIVITY: As tolerated. MEDICATIONS: Metoprolol changed to 12.5 mg daily; discontinue 25 mg daily dose. EDUCATION: 1. Follow up with primary care provider in 4 to 7 days. 2. Follow up with senior telecommunications technician, Dr. Conte, in 4 to 7 days. 3. Follow up with neurology, Dr. Ardon, within 1 month. 4. Return to the ER or nearest hospital if you experience any worsening of symptoms, chest pain or discomfort, shortness of breath, dizziness, lightheadedness, loss of consciousness, high fevers, chills, night sweats, or any other worrisome signs or symptoms. This is a summarized report of a complex medical history and hospital stay. For further details, please see the entire medical record. TIME SPENT: Approximately 35 minutes were spent on this discharge, greater than half that time was spent [id number] with the patient, discussing discharge plans and instructions. JESSE ONOFRE [id number]/[facility] #: [id number] RICH
[2019-08-06 13:18] LABS: Albumin 2.8 g/dL (3.4-4.7); Albumin/Globulin Ratio 0.88; Gamma Globulin 0.8 g/dL (0.6-1.6); Total Protein(PEP) 5.9 g/dL (6.3 - 7.9)
== END 2019-08-05 18:00 | disposition home or self-care (01) | DRG 313 ==
LOC: ED 18:21 → MEDTELE 08-02 00:34
PROVIDERS: ADMIT Internal Medicine; ATTEND Internal Medicine
PROC: 4A02XM4 Measurement of Cardiac Total Activity, External Approach (ICD-10-PCS; principal; 2019-08-05)
DX: R07.89 Other chest pain (principal); I50.33 Acute on chronic diastolic (congestive) heart failure; I13.0 Hypertensive heart and chronic kidney disease with heart failure and stage 1 through stage 4 chronic kidney disease, or unspecified chronic kidney disease; N18.4 Chronic kidney disease, stage 4 (severe); I25.10 Atherosclerotic heart disease of native coronary artery without angina pectoris; I45.10 Unspecified right bundle-branch block; I49.3 Ventricular premature depolarization; I71.2 Thoracic aortic aneurysm, without rupture; E78.5 Hyperlipidemia, unspecified; R79.89 Other specified abnormal findings of blood chemistry; M10.9 Gout, unspecified; K21.9 Gastro-esophageal reflux disease without esophagitis; Z96.651 Presence of right artificial knee joint; R00.1 Bradycardia, unspecified; R41.82 Altered mental status, unspecified; D69.6 Thrombocytopenia, unspecified; F32.9 Major depressive disorder, single episode, unspecified; I08.1 Rheumatic disorders of both mitral and tricuspid valves; I44.0 Atrioventricular block, first degree; R26.9 Unspecified abnormalities of gait and mobility; Z95.5 Presence of coronary angioplasty implant and graft; Z98.41 Cataract extraction status, right eye; Z98.42 Cataract extraction status, left eye; Z82.3 Family history of stroke; Z97.4 Presence of external hearing-aid; Z79.82 Long term (current) use of aspirin
CPT/HCPCS: 36415; 70450; 70551; 71045; 71046; 78452; 78582; 80048; 80053; 80061; 81003; 82140; 82248; 82550; 82553; 82607; 82746; 83036; 83605; 83735; 83880; 84100; 84155; 84165; 84443; 84484; 84550; 85025; 85060; 85379; 85610; 85652; 85730; 86140; 93005; 93017; 93306; 99284; A9270-GY; A9502; A9540; A9558; C8929; G8978-GP-CI; G8978-GP-CJ; G8979-GP-CI; G8980-GP-CI; J1940; J2785

== ENCOUNTER 2022-07-01 13:35 | Inpatient (IN) ==
[2022-07-01 14:02] LABS: ABS Basophils 0.1 10^3/ul (0-0.2); ABS Eosinophils 0.3 10^3/ul (0-0.6); ABS Lymphocytes 0.7 10^3/ul (1.0-4.8); ABS Monocytes 0.5 10^3/ul (0-0.8); ABS Neutrophils 3.2 10^3/ul (1.5-7.7); Eosinophil % 7.1 %; Hematocrit 34 % (42-52); Hemoglobin 11.3 g/dL (14.0-18.0); Lymphocyte % 14.1 %; Mean Corpuscular HGB Conc 34 g/dL (31-36); Mean Corpuscular Hemoglobin 35 pg (27-31); Mean Corpuscular Volume 104 fL (80-94); Mean Platelet Volume 11.3 fL (7.4-10.4); Platelet Count 109 10^3/uL (150-450); Red Blood Count 3.24 10^6 /uL (4.18-5.48); Red Cell Distribution Width 16 % (10-15); White Blood Count 4.7 10^3/uL (3.5-10.8)
[2022-07-01 14:07] LABS: INR 1.48 (0.89-1.11)
[2022-07-01 14:50] LABS: Albumin 3.8 g/dL (3.2-5.2); Albumin/Globulin Ratio 1.5 (1-3); Calcium 9.1 mg/dL (8.6-10.3); Globulin 2.5 g/dL (2-4); Potassium 3.7 mmol/L (3.5-5.0); Total Bilirubin 1.1 mg/dL (0.2-1.0); Total Protein 6.3 g/dL (6.4-8.9); eGFR CKD-EPI 25.6 (>60)
[2022-07-01] MEDS ORDERED: NS 0.9% 1000 ml BAG 1,000 ML IV ONE (15:11)
[2022-07-01 15:33] LABS: High Sensitivity Troponin 1 Hr 226 pg/mL (<20)
[2022-07-01 16:27] LABS: ABS Basophils 0.1 10^3/ul (0-0.2); ABS Eosinophils 0.3 10^3/ul (0-0.6); ABS Lymphocytes 0.8 10^3/ul (1.0-4.8); ABS Monocytes 0.5 10^3/ul (0-0.8); ABS Neutrophils 3.2 10^3/ul (1.5-7.7); Eosinophil % 6.6 %; Hematocrit 37 % (42-52); Hemoglobin 12.4 g/dL (14.0-18.0); Lymphocyte % 15.6 %; Mean Corpuscular HGB Conc 34 g/dL (31-36); Mean Corpuscular Hemoglobin 35 pg (27-31); Mean Corpuscular Volume 104 fL (80-94); Mean Platelet Volume 10.2 fL (7.4-10.4); Nucleated Red Blood Cells % 0.1; Platelet Count 105 10^3/uL (150-450); Red Blood Count 3.53 10^6 /uL (4.18-5.48); Red Cell Distribution Width 16 % (10-15); White Blood Count 4.8 10^3/uL (3.5-10.8)
[2022-07-01] MEDS ORDERED: Heparin 5000 UNITS/ML 1 mL VIAL IV SCH (17:00)
[2022-07-01] MEDS ORDERED: Perflutren Lipid Microsphere 3 ML VIAL ONE (17:06)
[2022-07-01 17:08] LABS: Direct Bilirubin 0.3 mg/dL (0.03-0.18); Indirect Bilirubin 0.8 mg/dL (0.3-1.0)
[2022-07-01 17:08] LABS: eGFR CKD-EPI 26.8 (>60)
[2022-07-01] MEDS: Heparin DRIP 25,000 UNITS BAG 25,000 UNITS/500 ML BAG IV SCH (17:27)
[2022-07-01 20:31] LABS: High Sensitivity Troponin 3 Hr 223 pg/mL (<20)
[2022-07-01] MEDS: Aspirin EC 81 mg TAB.EC (enteric coated) PO SCH (21:18)
[2022-07-02 06:49] LABS: ABS Basophils 0.1 10^3/ul (0-0.2); ABS Eosinophils 0.4 10^3/ul (0-0.6); ABS Monocytes 0.5 10^3/ul (0-0.8); ABS Neutrophils 3.7 10^3/ul (1.5-7.7); Eosinophil % 7.3 %; Hematocrit 34 % (42-52); Hematocrit for Retic CNT 34 % (42-52); Hemoglobin 11.9 g/dL (14.0-18.0); Lymphocyte % 17.3 %; Mean Corpuscular HGB Conc 35 g/dL (31-36); Mean Corpuscular Hemoglobin 36 pg (27-31); Mean Corpuscular Volume 103 fL (80-94); Mean Platelet Volume 10.7 fL (7.4-10.4); Platelet Count 103 10^3/uL (150-450); RBC Retic Count 3.29 10^6/uL (4.18-5.48); Red Blood Count 3.29 10^6 /uL (4.18-5.48); Red Cell Distribution Width 16 % (10-15); White Blood Count 5.7 10^3/uL (3.5-10.8)
[2022-07-02 07:11] LABS: Corrected Retic Count 0.6 % (0.5-1.5); Immature Retic Fraction 0.44
[2022-07-02 07:40] LABS: Calcium 9.1 mg/dL (8.6-10.3); Potassium 3.6 mmol/L (3.5-5.0); eGFR CKD-EPI 28.1 (>60)
[2022-07-02 08:02] LABS: Ferritin 151.4 ng/mL (24-336)
[2022-07-02] MEDS ORDERED: Donepezil HCL 10 mg TAB (NF) PO SCH (09:00)
[2022-07-02] MEDS ORDERED: Calcium Polycarbophil 625mg TB PO SCH (09:00)
[2022-07-02] MEDS ORDERED: Potassium Chloride LIQUID 20 MEQ/15 ML LIQUID PO ONE (11:51)
[2022-07-02] MEDS: Aspirin EC 81 mg TAB.EC (enteric coated) PO SCH (21:00)
[2022-07-02] MEDS: Heparin DRIP 25,000 UNITS BAG 25,000 UNITS/500 ML BAG IV SCH (21:50)
[2022-07-03 02:20] LABS: ABS Basophils 0.1 10^3/ul (0-0.2); ABS Eosinophils 0.4 10^3/ul (0-0.6); ABS Lymphocytes 1.1 10^3/ul (1.0-4.8); ABS Monocytes 0.5 10^3/ul (0-0.8); ABS Neutrophils 3.8 10^3/ul (1.5-7.7); Hematocrit 34 % (42-52); Hemoglobin 11.6 g/dL (14.0-18.0); Lymphocyte % 18.2 %; Mean Corpuscular HGB Conc 34 g/dL (31-36); Mean Corpuscular Hemoglobin 35 pg (27-31); Mean Corpuscular Volume 103 fL (80-94); Mean Platelet Volume 10.5 fL (7.4-10.4); Platelet Count 112 10^3/uL (150-450); Red Blood Count 3.29 10^6 /uL (4.18-5.48); Red Cell Distribution Width 16 % (10-15); White Blood Count 5.8 10^3/uL (3.5-10.8)
[2022-07-03 03:19] LABS: Calcium 8.9 mg/dL (8.6-10.3); Potassium 4.2 mmol/L (3.5-5.0); eGFR CKD-EPI 27.6 (>60)
[2022-07-03] MEDS: Nystatin SUSPENSION 100,000 UNITS/ML UDC PO SCH ×3 (13:00→20:42)
[2022-07-03] MEDS: Aspirin EC 81 mg TAB.EC (enteric coated) PO SCH (20:42)
[2022-07-04 06:30] LABS: ABS Eosinophils 0.3 10^3/ul (0-0.6); ABS Lymphocytes 0.9 10^3/ul (1.0-4.8); ABS Monocytes 0.4 10^3/ul (0-0.8); ABS Neutrophils 3.2 10^3/ul (1.5-7.7); Eosinophil % 6.6 %; Hematocrit 32 % (42-52); Hemoglobin 11.1 g/dL (14.0-18.0); Lymphocyte % 18.6 %; Mean Corpuscular HGB Conc 35 g/dL (31-36); Mean Corpuscular Hemoglobin 36 pg (27-31); Mean Corpuscular Volume 103 fL (80-94); Mean Platelet Volume 10.8 fL (7.4-10.4); Platelet Count 103 10^3/uL (150-450); Red Blood Count 3.12 10^6 /uL (4.18-5.48); Red Cell Distribution Width 16 % (10-15); White Blood Count 4.9 10^3/uL (3.5-10.8)
[2022-07-04] MEDS: Heparin DRIP 25,000 UNITS BAG 25,000 UNITS/500 ML BAG IV SCH (06:59)
[2022-07-04 07:03] LABS: Calcium 8.9 mg/dL (8.6-10.3); eGFR CKD-EPI 28.4 (>60)
[2022-07-04] MEDS ORDERED: diazePAM INJ CARPUJECT 5 MG/ML SYRINGE IV PRN (07:45)
[2022-07-04] MEDS ORDERED: Regadenoson 0.4 MG/5 ML SYRINGE ONE (09:30)
[2022-07-04] MEDS ORDERED: ceFAZolin 2 GM in NS PREMIX 2 GM/100 ML BAG IVPB ONE (10:42)
[2022-07-04] MEDS ORDERED: NS 0.9% 1000 ml BAG 1,000 ML IV SCH (10:45)
[2022-07-04] MEDS ORDERED: Heparin DRIP 25,000 UNITS BAG 25,000 UNITS/500 ML BAG IV SCH (11:00)
[2022-07-04] MEDS: Nystatin SUSPENSION 100,000 UNITS/ML UDC PO SCH (11:29)
[2022-07-04 13:44] VITALS: BP 123/74
[2022-07-04 15:45] LABS: TSH Ultra Thyroid Stim Horm 3.4 mcIU/mL (0.34-5.60)
== END 2022-07-04 16:10 | disposition home or self-care (01) | DRG 309 ==
LOC: EDHOLD 13:35 → ED 13:35 → MEDTELE 22:40
PROVIDERS: ADMIT Internal Medicine; ATTEND Internal Medicine

== ENCOUNTER 2022-07-19 16:00 | Inpatient (IN) ==
[2022-07-18] MEDS: ceFAZolin 1 GM ADVAN 1 GM in NS 0.9% 50 ML 50 ML IVPB SCH (17:10)
[2022-07-18 19:42] LABS: Calcium 9.4 mg/dL (8.6-10.3); Potassium 4.6 mmol/L (3.5-5.0); eGFR CKD-EPI 29.8 (>60)
[2022-07-18 20:29] LABS: ABS Basophils 0.1 10^3/ul (0-0.2); ABS Eosinophils 0.2 10^3/ul (0-0.6); ABS Lymphocytes 0.7 10^3/ul (1.0-4.8); ABS Monocytes 0.6 10^3/ul (0-0.8); ABS Neutrophils 4.2 10^3/ul (1.5-7.7); Eosinophil % 2.9 %; Hematocrit 37 % (42-52); Hemoglobin 11.5 g/dL (14.0-18.0); Lymphocyte % 12.7 %; Mean Corpuscular HGB Conc 32 g/dL (31-36); Mean Corpuscular Hemoglobin 33 pg (27-31); Mean Corpuscular Volume 106 fL (80-94); Mean Platelet Volume 10.7 fL (7.4-10.4); Platelet Count 116 10^3/uL (150-450); Red Blood Count 3.46 10^6 /uL (4.18-5.48); Red Cell Distribution Width 17 % (10-15); White Blood Count 5.8 10^3/uL (3.5-10.8)
[2022-07-18 20:31] LABS: Urine Appearance Clear; Urine Bilirubin Negative (Negative); Urine Blood Negative (Negative); Urine Color Yellow; Urine Glucose Negative (Negative); Urine Ketones Negative (Negative); Urine Nitrite Negative (Negative); Urine Protein Negative (Negative); Urine Specific Gravity 1.014 (1.002-1.030); Urine Urobilinogen Negative (Negative)
[2022-07-18] MEDS: LORazepam 2 mg VIAL 1 ml IV PUSH PRN (23:31)
[2022-07-19] MEDS: ceFAZolin 1 GM ADVAN 1 GM in NS 0.9% 50 ML 50 ML IVPB SCH ×2 (00:23→07:38)
[2022-07-19 09:53] LABS: Albumin 3.8 g/dL (3.2-5.2); Albumin/Globulin Ratio 1.6 (1-3); Globulin 2.4 g/dL (2-4); Total Bilirubin 1.4 mg/dL (0.2-1.0); Total Protein 6.2 g/dL (6.4-8.9)
[~2022-07-19 16:00] MED LIST: Calcium Carb (TUMS) 500 mg CHEW TAB PO PRN; Enoxaparin 30 MG/0.3 ML SYR SUBCUT SCH; LORazepam 2 mg VIAL 1 ml IV PUSH ONE; Lorazepam PYXIS KEY PRN; NS 0.9% 1000 ml BAG 1,000 ML IV SCH
[2022-07-19] MEDS: Aspirin EC 81 mg TAB.EC (enteric coated) PO SCH (21:01)
[2022-07-20] MEDS: LORazepam 2 mg VIAL 1 ml IV PUSH PRN ×2 (01:50→23:32)
[2022-07-20 05:55] LABS: Calcium 9.3 mg/dL (8.6-10.3); Sodium 135 mmol/L (135-145)
[2022-07-20 06:01] LABS: Blood Urea Nitrogen 35 mg/dL (6-24); Glucose 78 mg/dL (70-100); eGFR CKD-EPI 29.5 (>60)
[2022-07-20 06:05] LABS: CO2 Carbon Dioxide 13 mmol/L (22-32); Chloride 114 mmol/L (101-111)
[2022-07-20 06:06] LABS: Anion Gap 8 mmol/L (2-11)
[2022-07-20 06:52] LABS: ABS Eosinophils 0.2 10^3/ul (0-0.6); ABS Lymphocytes 0.7 10^3/ul (1.0-4.8); ABS Monocytes 0.6 10^3/ul (0-0.8); ABS Neutrophils 5.7 10^3/ul (1.5-7.7); Eosinophil % 2.4 %; Hematocrit 36 % (42-52); Hemoglobin 11.5 g/dL (14.0-18.0); Lymphocyte % 9.5 %; Mean Corpuscular HGB Conc 32 g/dL (31-36); Mean Corpuscular Hemoglobin 34 pg (27-31); Mean Corpuscular Volume 107 fL (80-94); Mean Platelet Volume 10.2 fL (7.4-10.4); Nucleated Red Blood Cells % 0.1; Platelet Count 107 10^3/uL (150-450); Red Blood Count 3.39 10^6 /uL (4.18-5.48); Red Cell Distribution Width 17 % (10-15); White Blood Count 7.3 10^3/uL (3.5-10.8)
[2022-07-20 09:22] LABS: Calcium 9.5 mg/dL (8.6-10.3); Potassium 4.6 mmol/L (3.5-5.0); eGFR CKD-EPI 30.7 (>60)
[2022-07-20] MEDS ORDERED: Metoprolol Tartrate 5 mg VIAL 5 ml VIAL (1 mg/ml) IV PRN (11:13)
[2022-07-20 11:50] LABS: PCO2 Arterial 29 mmHg (35-45); PO2 Arterial 82 mmHg (80-100)
[2022-07-20] MEDS: Aspirin EC 81 mg TAB.EC (enteric coated) PO SCH (20:32)
[2022-07-21 05:14] LABS: ABS Eosinophils 0.2 10^3/ul (0-0.6); ABS Lymphocytes 0.8 10^3/ul (1.0-4.8); ABS Monocytes 0.7 10^3/ul (0-0.8); ABS Neutrophils 5.3 10^3/ul (1.5-7.7); Eosinophil % 2.5 %; Hematocrit 36 % (42-52); Hemoglobin 11.7 g/dL (14.0-18.0); Lymphocyte % 11.1 %; Mean Corpuscular HGB Conc 33 g/dL (31-36); Mean Corpuscular Hemoglobin 34 pg (27-31); Mean Corpuscular Volume 105 fL (80-94); Mean Platelet Volume 9.9 fL (7.4-10.4); Platelet Count 120 10^3/uL (150-450); Red Cell Distribution Width 17 % (10-15)
[2022-07-21 05:36] LABS: Calcium 9.4 mg/dL (8.6-10.3); Potassium 4.2 mmol/L (3.5-5.0); eGFR CKD-EPI 29.2 (>60)
[2022-07-21] MEDS: Aspirin EC 81 mg TAB.EC (enteric coated) PO SCH (21:17)
[2022-07-22 05:44] LABS: Hematocrit 35 % (42-52); Hemoglobin 11.2 g/dL (14.0-18.0); Mean Corpuscular HGB Conc 32 g/dL (31-36); Mean Corpuscular Hemoglobin 33 pg (27-31); Mean Corpuscular Volume 105 fL (80-94); Mean Platelet Volume 10.5 fL (7.4-10.4); Platelet Count 117 10^3/uL (150-450); Red Blood Count 3.35 10^6 /uL (4.18-5.48); Red Cell Distribution Width 18 % (10-15)
[2022-07-22 06:02] LABS: Calcium 9.2 mg/dL (8.6-10.3); Potassium 3.9 mmol/L (3.5-5.0); eGFR CKD-EPI 30.5 (>60)
[2022-07-22] MEDS: Aspirin EC 81 mg TAB.EC (enteric coated) PO SCH (20:28)
[2022-07-22] MEDS: LORazepam 2 mg VIAL 1 ml IV PUSH PRN (20:31)
[2022-07-23] MEDS: LORazepam 2 mg VIAL 1 ml IV PUSH PRN (19:15)
[2022-07-23] MEDS: Aspirin EC 81 mg TAB.EC (enteric coated) PO SCH (21:44)
[2022-07-24] MEDS: Aspirin EC 81 mg TAB.EC (enteric coated) PO SCH ×3 (02:18→19:56)
[2022-07-25 12:34] LABS: Rapid COVID-19 Molecular Undetected (Undetected)
[2022-07-25 12:49] VITALS: BP 108/81
== END 2022-07-25 14:05 | disposition home or self-care (01) | DRG 243 ==
LOC: MEDTELE → SUATTDRO 16:00 → MEDTELE 07-24 17:16
PROVIDERS: ADMIT Pediatrics; ATTEND Hospitalist

== ENCOUNTER 2022-10-18 18:56 | Inpatient (IN) ==
[2022-10-18 20:04] LABS: ABS Eosinophils 0.1 10^3/ul (0-0.6); ABS Lymphocytes 0.6 10^3/ul (1.0-4.8); ABS Monocytes 0.4 10^3/ul (0-0.8); ABS Neutrophils 6.3 10^3/ul (1.5-7.7); ABS Nucleated RBC 0.1 10^3/ul; Eosinophil % 0.7 %; Hematocrit 29 % (42-52); Hemoglobin 9.4 g/dL (14.0-18.0); Lymphocyte % 8.1 %; Mean Corpuscular HGB Conc 33 g/dL (31-36); Mean Corpuscular Hemoglobin 35 pg (27-31); Mean Corpuscular Volume 106 fL (80-94); Mean Platelet Volume 8.9 fL (7.4-10.4); Nucleated Red Blood Cells % 0.9; Platelet Count 164 10^3/uL (150-450); Red Blood Count 2.71 10^6 /uL (4.18-5.48); Red Cell Distribution Width 17 % (10-15); White Blood Count 7.4 10^3/uL (3.5-10.8)
[2022-10-18 20:11] LABS: INR 1.77 (0.88-1.18)
[2022-10-18 20:26] LABS: High Sens Troponin Baseline 232 pg/mL (<20)
[2022-10-18 21:07] LABS: ALT 25 U/L (7-52); AST 32 U/L (13-39); Albumin 3.7 g/dL (3.2-5.2); Albumin/Globulin Ratio 1.5 (1-3); Alkaline Phosphatase 99 U/L (35-149); Blood Urea Nitrogen 67 mg/dL (6-24); CO2 Carbon Dioxide 24 mmol/L (22-32); Calcium 9.5 mg/dL (8.6-10.3); Globulin 2.4 g/dL (2-4); Glucose 115 mg/dL (70-100); Magnesium 2.5 mg/dL (1.9-2.7); Sodium 145 mmol/L (135-145); Total Protein 6.1 g/dL (6.4-8.9); eGFR CKD-EPI 27.3 (>60)
[2022-10-18 21:12] LABS: Anion Gap 8 mmol/L (2-11); Chloride 113 mmol/L (101-111)
[2022-10-18 21:40] LABS: Creatine Kinase 98 U/L (10-223)
[2022-10-18 21:49] LABS: High Sensitivity Troponin 1 Hr 221 pg/mL (<20)
[2022-10-18] MEDS ORDERED: Ziprasidone IM 20 mg VIAL 1 ml VIAL IM ONE (23:13)
[2022-10-19 00:42] LABS: Vitamin B12 > 1450 pg/mL (180-914)
[2022-10-19] MEDS ORDERED: Sodium Phosphate ADULT ENEMA 133 ML BTL PR PRN (01:39)
[2022-10-19] MEDS ORDERED: Magnesium Hydroxide LIQ 30 ML UDC PO PRN (01:39)
[2022-10-19] MEDS ORDERED: Calcium Carb (TUMS) 500 mg CHEW TAB PO PRN (02:17)
[2022-10-19] MEDS ORDERED: diazePAM INJ CARPUJECT 5 MG/ML SYRINGE IV ONE (02:33)
[2022-10-19 06:01] LABS: ABS Basophils 0.1 10^3/ul (0-0.2); ABS Eosinophils 0.1 10^3/ul (0-0.6); ABS Lymphocytes 0.7 10^3/ul (1.0-4.8); ABS Monocytes 0.6 10^3/ul (0-0.8); ABS Neutrophils 5.2 10^3/ul (1.5-7.7); ABS Nucleated RBC 0.1 10^3/ul; Eosinophil % 1.1 %; Hematocrit 27 % (42-52); Lymphocyte % 11.1 %; Mean Corpuscular HGB Conc 33 g/dL (31-36); Mean Corpuscular Hemoglobin 36 pg (27-31); Mean Corpuscular Volume 108 fL (80-94); Mean Platelet Volume 9.1 fL (7.4-10.4); Nucleated Red Blood Cells % 0.9; Platelet Count 167 10^3/uL (150-450); Red Blood Count 2.52 10^6 /uL (4.18-5.48); Red Cell Distribution Width 17 % (10-15); White Blood Count 6.7 10^3/uL (3.5-10.8)
[2022-10-19 06:38] LABS: Blood Urea Nitrogen 65 mg/dL (6-24); CO2 Carbon Dioxide 22 mmol/L (22-32); Calcium 9.2 mg/dL (8.6-10.3); Glucose 94 mg/dL (70-100); Sodium 145 mmol/L (135-145); eGFR CKD-EPI 31.6 (>60)
[2022-10-19 06:55] LABS: Anion Gap 8 mmol/L (2-11); Chloride 115 mmol/L (101-111)
[2022-10-19 08:05] LABS: Urine Appearance Clear; Urine Bilirubin Negative (Negative); Urine Blood 1+ (Negative); Urine Color Yellow; Urine Glucose Negative (Negative); Urine Ketones Negative (Negative); Urine Nitrite Negative (Negative); Urine Protein Negative (Negative); Urine Specific Gravity 1.014 (1.002-1.030); Urine Urobilinogen Negative (Negative)
[2022-10-19 08:09] LABS: Urine Bacteria Absent (Absent); Urine Red Blood Cell Trace(0-2/hpf) (Absent); Urine Squamous Epithelial Cell Present (Absent); Urine White Blood Cell Trace(0-5/hpf) (Absent)
[2022-10-19 08:13] LABS: Magnesium 2.4 mg/dL (1.9-2.7); Potassium Redraw 3.6 mmol/L (3.5-5.0)
[2022-10-19 08:30] LABS: Urine Creatinine Concentration 63.04 mg/dL
[2022-10-19] MEDS ORDERED: Aspirin EC 81 mg TAB.EC (enteric coated) PO SCH (21:00)
[2022-10-20 07:06] LABS: ABS Eosinophils 0.1 10^3/ul (0-0.6); ABS Lymphocytes 0.6 10^3/ul (1.0-4.8); ABS Monocytes 0.7 10^3/ul (0-0.8); ABS Neutrophils 5.1 10^3/ul (1.5-7.7); ABS Nucleated RBC 0.1 10^3/ul; Hematocrit 30 % (42-52); Hemoglobin 9.5 g/dL (14.0-18.0); Lymphocyte % 9.3 %; Mean Corpuscular HGB Conc 32 g/dL (31-36); Mean Corpuscular Hemoglobin 36 pg (27-31); Mean Corpuscular Volume 112 fL (80-94); Mean Platelet Volume 8.9 fL (7.4-10.4); Nucleated Red Blood Cells % 0.7; Platelet Count 147 10^3/uL (150-450); Red Blood Count 2.67 10^6 /uL (4.18-5.48); Red Cell Distribution Width 20 % (10-15); White Blood Count 6.5 10^3/uL (3.5-10.8)
[2022-10-20 07:26] LABS: Albumin 3.4 g/dL (3.2-5.2); Albumin/Globulin Ratio 1.5 (1-3); Calcium 9.5 mg/dL (8.6-10.3); Globulin 2.3 g/dL (2-4); Potassium 3.8 mmol/L (3.5-5.0); Total Protein 5.7 g/dL (6.4-8.9); eGFR CKD-EPI 30.1 (>60)
[2022-10-20 07:48] LABS: Folate 5.78 ng/mL (5.90-24.80)
[2022-10-20 08:44] LABS: Anisocytosis 3+; Hypochromasia 2+; Macrocytosis 2+; Polychromasia 2+
[2022-10-20] MEDS ORDERED: NS 0.45% 1000 ml BAG 1,000 ML IV SCH (14:00)
[2022-10-21 06:25] LABS: ABS Eosinophils 0.2 10^3/ul (0-0.6); ABS Lymphocytes 0.7 10^3/ul (1.0-4.8); ABS Monocytes 0.7 10^3/ul (0-0.8); ABS Neutrophils 5.3 10^3/ul (1.5-7.7); Eosinophil % 3.3 %; Hematocrit 29 % (42-52); Hemoglobin 8.9 g/dL (14.0-18.0); Lymphocyte % 10.5 %; Mean Corpuscular HGB Conc 31 g/dL (31-36); Mean Corpuscular Hemoglobin 35 pg (27-31); Mean Corpuscular Volume 114 fL (80-94); Mean Platelet Volume 8.9 fL (7.4-10.4); Nucleated Red Blood Cells % 0.4; Platelet Count 140 10^3/uL (150-450); Red Blood Count 2.55 10^6 /uL (4.18-5.48); Red Cell Distribution Width 21 % (10-15)
[2022-10-21 06:42] LABS: Albumin 3.3 g/dL (3.2-5.2); Albumin/Globulin Ratio 1.5 (1-3); Calcium 9.2 mg/dL (8.6-10.3); Globulin 2.2 g/dL (2-4); Potassium 4.1 mmol/L (3.5-5.0); Total Bilirubin 1.6 mg/dL (0.2-1.0); Total Protein 5.5 g/dL (6.4-8.9); eGFR CKD-EPI 31.9 (>60)
[2022-10-21 09:29] VITALS: BP 119/59
== END 2022-10-21 12:52 | DRG 682 ==
LOC: EDHOLD 18:56 → ED 18:56 → SUATTDRO 23:54 → MEDTELE 10-19 16:23
PROVIDERS: ADMIT Internal Medicine; ATTEND Internal Medicine Hematology & Oncology